=== PATIENT | male | born 1945 | race Caucasian/White ===

== ENCOUNTER → 2016-12-01 | Day surgery (SDC) | payer OTHER ==
[2016-11-16 11:34] VITALS: Ht 185.4 cm; Wt 100.0 kg
[~2016-12-01] VITALS: Ht 185.4 cm; Wt 100.0 kg
[~2016-12-01] MED LIST: 500ML BSS 0.3ML EPI 1:1000PF IRRIG ONE; ACETAMINOPHEN 325 MG TAB PO PRN; AMLO-114 PO; AMVISC PLUS 0.8ML SYRINGE INT OCU ONE; ATEN25TA PO; ATROPINE SULFATE 0.1 MG/ML 5ML SYR IV PRN; BENZ100C84 PO; BSS FLUSH ONE; CEFD1CAP14 PO; DUTA0.5C PO; ENDOCOAT 0.85ML SYRINGE INT OCU ONE; EpHEDrine SULFATE INJ 50 MG/ML AMP IV PRN; EpINEphrine INJ 1MG/ML AMP 1 MG/ML AMP ONE; FENTANYL CITRATE INJ 50 MCG/1 ML 2 ML VIAL ONE; LACTATED RINGER'S 1000ML 500 ML IV SCH; LIDOCAINE 4% OP SOLN DROP CHARGE ONE; LIDOCAINE 4% OP SOLN DROP CHARGE OPL SCH; LIDOCAINE HCL 1% MPF 2 ML VIAL ONE; MIDAZOLAM HCL 1 MG/ML 2ML VIAL ONE; MIX: 4ML BSS 1ML EPI 1:1000 PF TOP ONE; MOXIFLOXACIN OPH SOLN PER DROP CHARGE ONE; PANT40TA PO; POVIDONE-IODINE OP SOLN 30 ML BTL ONE; PRED10TA PO; PROPARACAINE 0.5% OP SOLN PER DROP CHARGE OPL SCH; PRVC40 PO; TOBRAMYCIN/DEXAMETHASONE OPH OINT PER APPLN CHARGE ONE; TRAM-10 PO
[2016-12-01] MEDS: PHENYLEPHRINE HCL 2.5% OP SOLN PER DROP CHARGE OPL SCH ×3 (06:11→08:01)
[2016-12-01] MEDS: TROPICAMIDE 1% OP SOLN PER DROP CHARGE OPL SCH ×2 (07:55→08:02)
[2016-12-01] MEDS: CYCLOPENTOLATE HCL 1% OP SOLN PER DROP CHARGE OPL SCH ×3 (07:57→08:17)
[2016-12-01] MEDS: MOXIFLOXACIN OPH SOLN PER DROP CHARGE OPL SCH ×3 (08:00→08:18)
--- NOTE | 2016-12-01 08:12 | History & Physical Bridge - [place] ---
H&P Re-Evaluation Bridge Note: I have examined the patient, reviewed the History & Physical and in the interval since the performance of the History & Physical I have noted the following changes of clinical significance: No changes noted. Left eye cataract surgery.
--- NOTE | 2016-12-01 09:17 | Anesthesia Progress Nt - [facility] ---
Anesthesia Post Op Note Date & Time December 01, 2016 at 09:16 Vital Signs Pain Intensity: 0 Vital Signs Past 12 Hours Date Time Temp Pulse Resp B/P Pulse Ox O2 Delivery O2 Flow Rate FiO2 12/01/16 07:31 36.3 60 16 184/94 96 Room Air Notes Mental Status: alert / awake / arousable, participated in evaluation Pt Amnestic to Procedure: Yes Nausea / Vomiting: adequately controlled Pain: adequately controlled Airway Patency, RR, SpO2: stable & adequate BP & HR: stable & adequate Hydration State: stable & adequate Anesthetic Complications: no major complications apparent
--- NOTE | 2016-12-01 09:20 | [facility] Post Operative Brief Note ---
Immediate Operative Summary Operative Date December 01, 2016. Pre-Operative Diagnosis Cataract Left Eye Post-Operative Diagnosis Same Procedure(s) Performed Left Cataract Phacoemulsification With Intraocular Lens Implant Surgeon Dr. Wilson Manufacturing Engineering Intern Surgeon(s) None Estimated Blood Loss 0 Findings left cataract Specimens 0 Complication(s) None Disposition
--- NOTE | 2016-12-01 09:21 | [facility] Operative Report ---
Operative Report Date of Service December 01, 2016. Operative Report Phaco with monofocal IOL DATE OF OPERATION: 12/01/16 PREOPERATIVE DIAGNOSIS: Senile nuclear cataract, left eye POSTOPERATIVE DIAGNOSIS: Senile nuclear cataract, left eye PROCEDURE PERFORMED: Phacoemulsification with intraocular lens implantation, left eye SURGEON: Dr. Awais Wilson ANESTHESIA: Topical with 1% intracameral lidocaine and monitored anesthesia care COMPLICATIONS: None DESCRIPTION OF PROCEDURE: After positively identifying the patient both verbally and by wristband in the preoperative area, the left eye was marked as the operative eye. The patient was then brought back to the operating room by the anesthesia and nursing staff where they were given a drop of Lidocaine and betadine into the operative eye. They were then sterilely prepped and draped in the standard fashion typical for ophthalmic surgery. Steri-strips were placed along the upper eyelids to keep the lashes back, and a lid speculum was placed into the operative eye. At this point, a documented time out was performed with members of the ophthalmology, nursing, and anesthesia staffs all agreeing upon the correct patient, correct location for surgery, correct procedure, and correct type and power of intraocular lens to be implanted. The microscope was then swung into position. First, a paracentesis wound was made using a sideport blade. Then, in sequence, 1% preservative-free lidocaine followed by Endocoat viscoelastic was injected into the anterior chamber. Next , the main incision was made with a keratome blade in triplanar fashion. A sharp cystotome was introduced into the eye and used to create a tear in the anterior capsule, which was directed into a continuous curvilinear capsulorrhexis using Utrata forceps. Hydrodissection was then performed with BSS on a flat-tip cannula. Next, the phacoemulsification handpiece was introduced into the eye and used to remove the nucleus in a pkpusx-adg-hcuimrw fashion. This was done without complication and then the irrigation-aspiration handpiece was introduced into the eye and used to remove all remaining cortical and epinuclear material. Amvisc was then injected into the anterior chamber as well as into the capsular bag and using the lens injector system, an MX60 19.5 D lens, serial number [id number], and expiration date 05/2019 was injected into the capsular bag and rotated into the correct position. Next, the irrigation- aspiration handpiece was used to remove all remaining Amvisc. BSS was used to hydrate the main wound, and then BSS was injected into the paracentesis site to reach physiologic pressure and then the main wound was checked and found to be watertight. The patient was given drops of Vigamox and Tobradex ointment into the operative eye, and then the surrounding area was cleaned and dried. A clear plastic shield was placed over the eye and the patient was then sat up and taken from the operating room by the anesthesia staff having tolerated the procedure well and suffering no complications. DISPOSITION: The patient was returned to the recovery room in stable condition. I attest to the content of the Intraoperative Record and any orders documented therein. Any exceptions are noted below.
--- NOTE | 2016-12-01 09:22 | Discharge Instructions-SurgCtr ---
Discharge Instructions Date of Service December 01, 2016. Visit Reason for Visit: Cataract Left Eye Discharge Discharge Diagnosis / Problem: left cataract Discharge Goals Goal(s): Decrease discomfort, Improve function Activity Recommendations Activity Limitations: as noted below Anesthesia . Post Anesthesia Instructions: If you have had General Anesthesia or IV Sedation: * Do not drive today. * Resume driving when surgeon permits. * Do not make important decisions or sign legal documents today. * Call surgeon for: 1. Temperature elevations greater than 101 degrees F. 2. Uncontrollable pain. 3. Excessive bleeding. 4. Persistent nausea and vomiting. 5. Medication intolerance (nausea, vomiting or rash). * For nausea and vomiting use only clear liquids such as: tea, soda, bouillon until nausea subsides, then gradually increase diet as tolerated. * If you have any concerns or questions, call your surgeon's office. If physician is unavailable and it is an emergency, call 911 or go to the nearest emergency room. . Instructions / Follow-Up Instructions / Follow-Up ACTIVITY RECOMMENDATIONS: * Light activities. * You may walk outside, read, watch television. * You may notice redness on the white part of the eye and some blurry vision - this is normal. MEDICATIONS: Resume previous medications unless instructed otherwise by your surgeon. Start all eye drops at 11:30 am today: * Eye drops (today): Prednisone - one drop in operative eye every 2 hours while awake Ofloxacin - one drop in operative eye every 2 hours while awake Ketorolac - one drop in operative eye 4 times daily SPECIAL CARE INSTRUCTIONS: * Tape plastic shield over eye to sleep at night. Call your doctor at with any concerns or problems. FOLLOW UP VISIT: Follow-up with Dr Wilson at [facility] as scheduled. Diet Recommendations Home Diet: no limitations Procedures Procedures Performed: Left Cataract Phacoemulsification With Intraocular Lens Implant Pending Studies Studies pending at discharge: no Medical Emergencies . Who to Call and When: Medical Emergencies: If at any time you feel your situation is an emergency, please call 911 immediately. . Non-Emergent Contact Non-Emergency issues call your: Surgeon . . "Provider Documentation" section prepared by Awais Wilson. .
[2016-12-01 09:24] VITALS: TEMP 36.5
[2016-12-01 09:50] VITALS: BP 152/79; PULSE 56; O2SAT 98
== END | disposition home or self-care (01) ==
LOC: X.SURG 07:15
PROVIDERS: ATTEND Ophthalmology
DX: H25.12 Age-related nuclear cataract, left eye (principal); I10 Essential (primary) hypertension; K21.9 Gastro-esophageal reflux disease without esophagitis; I51.9 Heart disease, unspecified; Z85.51 Personal history of malignant neoplasm of bladder

== ENCOUNTER → 2017-01-05 | Day surgery (SDC) | payer OTHER ==
[2016-12-30 09:47] VITALS: Ht 185.4 cm; Wt 100.0 kg
[~2017-01-05] VITALS: Ht 185.4 cm; Wt 100.0 kg
[~2017-01-05] MED LIST changes: -FENTANYL CITRATE INJ 50 MCG/1 ML 2 ML VIAL ONE; -LIDOCAINE 4% OP SOLN DROP CHARGE OPL SCH; +LIDOCAINE 4% OP SOLN DROP CHARGE OPR SCH; -PRED10TA PO; -PROPARACAINE 0.5% OP SOLN PER DROP CHARGE OPL SCH; +PROPARACAINE 0.5% OP SOLN PER DROP CHARGE OPR SCH
[2017-01-05] MEDS: PHENYLEPHRINE HCL 2.5% OP SOLN PER DROP CHARGE OPR SCH ×3 (09:44→09:54)
[2017-01-05] MEDS: TROPICAMIDE 1% OP SOLN PER DROP CHARGE OPR SCH ×3 (09:45→09:55)
[2017-01-05] MEDS: CYCLOPENTOLATE HCL 1% OP SOLN PER DROP CHARGE OPR SCH ×3 (09:46→09:56)
[2017-01-05] MEDS: MOXIFLOXACIN OPH SOLN PER DROP CHARGE OPR SCH ×3 (09:48→09:57)
--- NOTE | 2017-01-05 10:10 | History & Physical Bridge - [place] ---
H&P Re-Evaluation Bridge Note: I have examined the patient, reviewed the History & Physical and in the interval since the performance of the History & Physical I have noted the following changes of clinical significance: No changes noted. Right eye cataract surgery.
--- NOTE | 2017-01-05 11:18 | [facility] Post Operative Brief Note ---
Immediate Operative Summary Operative Date Jan 05, 2017. Pre-Operative Diagnosis Right Eye Cataract Post-Operative Diagnosis Same Procedure(s) Performed Right Cataract Phacoemulsification With Intraocular Lens Implant Surgeon Dr Wilson Neurodiagnostic Technician Surgeon(s) None Estimated Blood Loss 0ml Findings right cataract Specimens None Complication(s) None Disposition
--- NOTE | 2017-01-05 11:19 | [facility] Operative Report ---
Operative Report Date of Service Jan 05, 2017. Operative Report Phaco with monofocal IOL DATE OF OPERATION: 01/05/17 PREOPERATIVE DIAGNOSIS: Senile nuclear cataract, right eye POSTOPERATIVE DIAGNOSIS: Senile nuclear cataract, right eye PROCEDURE PERFORMED: Phacoemulsification with intraocular lens implantation, right eye SURGEON: Dr. Awais Wilson ANESTHESIA: Topical with 1% intracameral lidocaine and monitored anesthesia care COMPLICATIONS: None DESCRIPTION OF PROCEDURE: After positively identifying the patient both verbally and by wristband in the preoperative area, the right eye was marked as the operative eye. The patient was then brought back to the operating room by the anesthesia and nursing staff where they were given a drop of Lidocaine and betadine into the operative eye. They were then sterilely prepped and draped in the standard fashion typical for ophthalmic surgery. Steri-strips were placed along the upper eyelids to keep the lashes back, and a lid speculum was placed into the operative eye. At this point, a documented time out was performed with members of the ophthalmology, nursing, and anesthesia staffs all agreeing upon the correct patient, correct location for surgery, correct procedure, and correct type and power of intraocular lens to be implanted. The microscope was then swung into position. First, a paracentesis wound was made using a sideport blade. Then, in sequence, 1% preservative-free lidocaine followed by Endocoat viscoelastic was injected into the anterior chamber. Next , the main incision was made with a keratome blade in triplanar fashion. A sharp cystotome was introduced into the eye and used to create a tear in the anterior capsule, which was directed into a continuous curvilinear capsulorrhexis using Utrata forceps. Hydrodissection was then performed with BSS on a flat-tip cannula. Next, the phacoemulsification handpiece was introduced into the eye and used to remove the nucleus in a ojmgds-qdg-orutifz fashion. This was done without complication and then the irrigation-aspiration handpiece was introduced into the eye and used to remove all remaining cortical and epinuclear material. Amvisc was then injected into the anterior chamber as well as into the capsular bag and using the lens injector system, an MX60 19.0 D lens, serial number [id number], and expiration date 09/2019 was injected into the capsular bag and rotated into the correct position. Next, the irrigation- aspiration handpiece was used to remove all remaining Amvisc. BSS was used to hydrate the main wound, and then BSS was injected into the paracentesis site to reach physiologic pressure and then the main wound was checked and found to be watertight. The patient was given drops of Vigamox and Tobradex ointment into the operative eye, and then the surrounding area was cleaned and dried. A clear plastic shield was placed over the eye and the patient was then sat up and taken from the operating room by the anesthesia staff having tolerated the procedure well and suffering no complications. DISPOSITION: The patient was returned to the recovery room in stable condition. I attest to the content of the Intraoperative Record and any orders documented therein. Any exceptions are noted below.
[2017-01-05 11:20] VITALS: TEMP 36.4
--- NOTE | 2017-01-05 11:20 | Discharge Instructions-SurgCtr ---
Discharge Instructions Date of Service Jan 05, 2017. Visit Reason for Visit: Cataract Right Eye Discharge Discharge Diagnosis / Problem: right cataract Discharge Goals Goal(s): Decrease discomfort, Improve function Activity Recommendations Activity Limitations: as noted below Anesthesia . Post Anesthesia Instructions: If you have had General Anesthesia or IV Sedation: * Do not drive today. * Resume driving when surgeon permits. * Do not make important decisions or sign legal documents today. * Call surgeon for: 1. Temperature elevations greater than 101 degrees F. 2. Uncontrollable pain. 3. Excessive bleeding. 4. Persistent nausea and vomiting. 5. Medication intolerance (nausea, vomiting or rash). * For nausea and vomiting use only clear liquids such as: tea, soda, bouillon until nausea subsides, then gradually increase diet as tolerated. * If you have any concerns or questions, call your surgeon's office. If physician is unavailable and it is an emergency, call 911 or go to the nearest emergency room. . Instructions / Follow-Up Instructions / Follow-Up ACTIVITY RECOMMENDATIONS: * Light activities. * You may walk outside, read, watch television. * You may notice redness on the white part of the eye and some blurry vision - this is normal. MEDICATIONS: Resume previous medications unless instructed otherwise by your surgeon. Start all eye drops at 1:30 pm today: * Eye drops (today): Prednisone - one drop in operative eye every 2 hours while awake Ofloxacin - one drop in operative eye every 2 hours while awake Ketorolac - one drop in operative eye 4 times daily SPECIAL CARE INSTRUCTIONS: * Tape plastic shield over eye to sleep at night. Call your doctor at with any concerns or problems. FOLLOW UP VISIT: Follow-up with Dr Wilson at [facility] as scheduled. Diet Recommendations Home Diet: no limitations Procedures Procedures Performed: Right Cataract Phacoemulsification With Intraocular Lens Implant Pending Studies Studies pending at discharge: no Medical Emergencies . Who to Call and When: Medical Emergencies: If at any time you feel your situation is an emergency, please call 911 immediately. . Non-Emergent Contact Non-Emergency issues call your: Surgeon . . "Provider Documentation" section prepared by Awais Wilson. .
--- NOTE | 2017-01-05 11:29 | Anesthesia Progress Nt - [facility] ---
Anesthesia Post Op Note Date & Time Jan 05, 2017 at 11:29 Vital Signs Pain Intensity: 0 Vital Signs Past 12 Hours Date Time Temp Pulse Resp B/P (MAP) Pulse Ox O2 Delivery O2 Flow Rate FiO2 01/05/17 11:20 36.4 62 18 133/86 (102) 100 Room Air 01/05/17 09:31 36.4 56 20 131/81 (98) 98 Room Air Notes Mental Status: alert / awake / arousable, participated in evaluation Pt Amnestic to Procedure: Yes Nausea / Vomiting: adequately controlled Pain: adequately controlled Airway Patency, RR, SpO2: stable & adequate BP & HR: stable & adequate Hydration State: stable & adequate Anesthetic Complications: no major complications apparent
[2017-01-05 11:46] VITALS: BP 133/78; PULSE 58; O2SAT 99
== END | disposition home or self-care (01) ==
LOC: X.SURG 09:01
PROVIDERS: ATTEND Ophthalmology
DX: H25.11 Age-related nuclear cataract, right eye (principal); I10 Essential (primary) hypertension; K21.9 Gastro-esophageal reflux disease without esophagitis; Z87.891 Personal history of nicotine dependence; Z79.899 Other long term (current) drug therapy

== ENCOUNTER 2024-01-19 06:59 | Observation (INO) ==
--- NOTE | 2023-12-23 11:45 | PAT Medication Instructions ---
Medication Instructions Date of Service December 23, 2023 Home Medications Medication Instructions Recorded naloxone 4 mg/actuation nasal 1 sprays intranasal Q2M PRN opioid 05/31/19 spray (Narcan) overdose #2 ea aspirin 81 mg tablet,delayed release (Aspir-) 81 mg PO QAM naproxen sodium 220 mg tablet (Aleve) 220 mg PO BID PRN Pain pantoprazole 40 mg tablet,delayed release 40 mg PO QAM naloxone 4 mg/actuation nasal spray (Narcan) 1 sprays intranasal Q2M PRN opioid overdose amlodipine 10 mg tablet 10 mg PO QAM dccaizr-rltoucvfpxvlk-ltrklmrg 250 mg-250 mg-65 mg tablet (Excedrin Extra Strength) 1 tab PO Q6H PRN Migraine Headache atorvastatin 40 mg tablet 40 mg PO QAM fluorouracil 5 % topical cream 1 applic topical DIRECTED PRN Rash loratadine 10 mg tablet 10 mg PO DAILY PRN Allergy Symptoms nitroglycerin 0.3 mg sublingual tablet 0.3 mg sublingual Q5M PRN Chest Pain tramadol 50 mg tablet 50 mg PO Q6H Continue as directed naloxone 4 mg/actuation nasal spray (Narcan) 1 sprays intranasal Q2M PRN opioid overdose (if needed) nitroglycerin 0.3 mg sublingual tablet 0.3 mg sublingual Q5M PRN Chest Pain (if needed) ASK your surgeon for instructions naproxen sodium 220 mg tablet (Aleve) 220 mg PO BID PRN Pain xxzifqo-cszuucpzkekvg-yqydifgk 250 mg-250 mg-65 mg tablet (Excedrin Extra Strength) 1 tab PO Q6H PRN Migraine Headache STOP taking 24 hours before surgery fluorouracil 5 % topical cream 1 applic topical DIRECTED PRN Rash DO NOT take the morning of surgery loratadine 10 mg tablet 10 mg PO DAILY PRN Allergy Symptoms Take morning of surgery With a small sip of water, OTHERWISE NOTHING TO EAT OR DRINK AFTER MIDNIGHT: aspirin 81 mg tablet,delayed release (Aspir-) 81 mg PO QAM (unless surgeon directed otherwise) pantoprazole 40 mg tablet,delayed release 40 mg PO QAM amlodipine 10 mg tablet 10 mg PO QAM atorvastatin 40 mg tablet 40 mg PO QAM tramadol 50 mg tablet 50 mg PO Q6H Take evening before surgery loratadine 10 mg tablet 10 mg PO DAILY PRN Allergy Symptoms (if needed) tramadol 50 mg tablet 50 mg PO Q6H Other Notes If you have any questions please call us at [phone] or [phone] or [phone] or [phone]
--- NOTE | 2023-12-26 10:24 | Anesthesiology Consultation ---
Date of Service December 26, 2023 Assessment & Plan (1) Encounter for pre-operative examination: Chart Review Chart Review: Acceptable Risk for Surgery and Patient seen in Pre Admission Testing - Discussed cardiac history with Dr. Gao- patient can proceed as scheduled - Check BSG AM DOS - Patient is NOT an ideal OPJ candidate (currently 23 hour obs) Per PAT appt on 12/26/23, had sore throat last week- resolved. No recent illness/disease exposures or recent illness/disease positive tests. Will leave to surgeon's discretion if preop Covid testing needed Patient last seen by cardiology 10/27/2023 = seen for cardiology follow-up. History of [id number] had cardiac cath but had occluded LAD and high-grade distal left circumflex stenosis. Had PCI of his LAD at that time. Longstanding RBBB. States he needs shoulder replacements... reports bilateral carpal tunnel and trigger fingers. Scheduled with [facility] in November. Chronic CAD/RBBBstable from cardiac standpoint. Continue current medications. Hypertension. Dyslipidemia. Fatiguenegative cardiac workup. No signs of anemia, infection or thyroid abnormalities. Likely due to waking up at night to use the restroom. Not taking Vesicare as prescribed. Did encourage patient to take Vesicare. Hx of atypical chest pain- has MSK complaints. Follow up in 6 months. History Surgery Operation Date: 01/19/24 11:55 Proposed Procedures p Right Reverse Total Shoulder Arthroplasty, Possible Biceps Tenodesis - Anshu Hayden MD s Right Open Carpal Tunnel Release - Anshu Hayden MD Height/Weight Height: 6 ft 1 in Weight: 100.2 kg Allergies Allergy/AdvReac Type Severity Reaction Status Date / Time tamsulosin Allergy Unknown "PASSED Verified 12/23/23 08:06 OUT" Medications Home Medications Medication Instructions Recorded Confirmed Last Taken aspirin 81 mg tablet,delayed 81 mg PO QAM 05/28/19 12/23/23 05/07/19 release (Aspir-) naproxen sodium 220 mg tablet 220 mg PO BID PRN Pain 05/28/19 12/23/23 05/29/19 (Aleve) pantoprazole 40 mg tablet,delayed 40 mg PO QAM 05/28/19 12/23/23 05/31/19 06:50 release naloxone 4 mg/actuation nasal 1 sprays intranasal Q2M PRN opioid 05/31/19 12/23/23 Unknown spray (Narcan) overdose #2 ea amlodipine 10 mg tablet 10 mg PO QAM 11/10/23 12/23/23 Unknown qjzfbkl-haawfrmitwugu-bnrlcxzc 250 1 tab PO Q6H PRN Migraine Headache 11/10/23 12/23/23 Unknown mg-250 mg-65 mg tablet (Excedrin Extra Strength) atorvastatin 40 mg tablet 40 mg PO QAM 11/10/23 12/23/23 Unknown fluorouracil 5 % topical cream 1 applic topical DIRECTED PRN 11/10/23 12/23/23 Unknown Rash loratadine 10 mg tablet 10 mg PO DAILY PRN Allergy Symptoms 11/10/23 12/23/23 Unknown nitroglycerin 0.3 mg sublingual 0.3 mg sublingual Q5M PRN Chest 11/10/23 12/23/23 Unknown tablet Pain tramadol 50 mg tablet 50 mg PO Q6H 11/10/23 12/23/23 Unknown Past Medical History Medical History (Updated 12/27/23 @ 14:00 by Rosario Sullivan PA-C) CAD (coronary artery disease) PCI with BRENDA x 3 to LAD 03/04/2009 (occluded LAD) BRENDA to LCx 03/06/2009 (high grade distal LCx stenosis) Chronic back pain Degenerative disc disease Diverticular disease GERD (gastroesophageal reflux disease) well controlled and stable History of bladder cancer 1992- s/p tumor removal - no chemo or XRT- no current issues History of COVID-2019 - no residual issues History of kidney stones Hx of migraine headaches Hx of sepsis 2018 > unknown cause Hyperlipidemia Hypertension Osteoarthritis Type II diabetes mellitus Exercise / Class Metabolic Activity II 4-5 Yardwork/Stairs/Walk up hill (one flight of stairs - no chest pain or SOB ) Past Family History Family History Father Family history of diabetes mellitus Mother Family history of diabetes mellitus Sister Family history of diabetes mellitus Past Surgical History Surgical History H/O arthroscopic knee surgery right History of adenoidectomy History of ankle surgery right trauma to ankle/reconstruction History of biopsy of bladder cancer 1992 > resolved History of cardiac cath February 2009 @ [facility] History of cataract surgery bilateral History of colonoscopy History of cystoscopy History of esophagogastroduodenoscopy (EGD) History of heart artery stent x4 stents (February 2009)--unsure of type History of prostatectomy 2020 - patient unsure why prostate was removed History of repair of rotator cuff bilat History of tonsillectomy Hx of Achilles tendon repair left Past Anesthesia History No Hx of Anesthesia Complications and No Family Hx of Anesthesia Complications History of PONV No Hx of PONV and No Hx of Motion Sickness Social History Smoking Status: Former smoker tobacco type: cigarettes Do You Dip or Chew Tobacco: No Smoking End Date: 30 yrs ago Hx Alcohol Use: No Hx Substance Use: No substance use type: does not use Review of Systems Patient denies chest pain, shortness of breath, dyspnea on exertion, cough, wheezing, palpitations. No hx of seizures, stroke, [place], apnea/snoring. No hx of blood clots or blood transfusions Physical Exam Vital Signs VITALS BP 144/79 P 70 TEMP 97.5 SP02 97% RESP 16 Constitutional no acute distress ENMT Mouth: no TMJ clicking Thyromental Distance: < 3.5 Finger Breadths (3.0) Mallampati Class: III Full dentures on top and bottom Neck + limited neck extension Respiratory normal respiratory effort; no respiratory distress Auscultation: lungs clear to auscultation bilaterally; no wheezes Cardiovascular Rate/Rhythm: regular rate and regular rhythm Heart Sounds: no murmur Vessels: no carotid bruit Musculoskeletal Spine: + pain with cervical ROM (stiffness) Extremities: extremities normal to inspection Psychiatric Orientation: alert Lab Results Anesthesia Preop Results Results Anesthesia Widget: WBC 6.50 K/ul (4.8-10.8) 12/26/23 Hgb 13.6 g/dl (14.0-18.0) L 12/26/23 Hct 39.6 % (42.0-52.0) L 12/26/23 Plt 228 K/uL (130-400) 12/26/23 Na 137 mmol/L (136-145) 12/26/23 K 3.8 mmol/L (3.5-5.1) 12/26/23 Cl 103 mmol/L (98-107) 12/26/23 CO2 28 mmol/L (21-32) 12/26/23 BUN 18 mg/dl (6-23) 12/26/23 Creat 0.91 mg/dl (0.6-1.4) 12/26/23 Glucose Level 188 mg/dl (70-99(Fasting)) H 12/26/23 PT 11.0 Seconds (9.0-12.0) 12/26/23 PTT 28 Seconds (21-31) 12/26/23 INR 1.0 (0.9-1.1) 12/26/23 HA1c 7.8 % (4.5-5.6) H 12/26/23 Blood Type A Positive 12/26/23 Antibody Screen NEGATIVE 12/26/23 Testing Electrocardiogram Date: 12/26/23 Findings: + NSR @ (70bpm) Left axis deviation RBBB When compared to EKG from May 29, 2019- no significant change was found per cardio Chest X-Ray Date: 12/26/23 FINDINGS: Cardiac size is upper limits of normal. Lungs appear clear. Hyperinflation. Coronary arterial stenting. No pneumothorax or pleural effusion. Bones appear intact. IMPRESSION: No acute process. Echocardiogram Date: 08/25/23 EF: 62% LV Function: normal Other Findings: + LVH (mild/concentric) and + diastolic dysfunction (Grade I ) Non dilated cardiac chambers Mild AR. Mild MR. Stress Test Date: 10/17/19 Type: nuclear Abnormal pharmacologic Cardiolite stress test demonstrating inferior infarct with mild evette-infarct ischemia Normal pharmacologic stress EKG Normal post-rest EF Mild inferior wall hypokinesis (Per cardio records- stress test reviewed- feels this is consistent with known high grade distal LCx stenosis- will manage medically)
[~2024-01-19 06:59] MED LIST changes: -500ML BSS 0.3ML EPI 1:1000PF IRRIG ONE; -ACETAMINOPHEN 325 MG TAB PO PRN; -AMLO-114 PO; -AMVISC PLUS 0.8ML SYRINGE INT OCU ONE; -ATEN25TA PO; -ATROPINE SULFATE 0.1 MG/ML 5ML SYR IV PRN; -BENZ100C84 PO; -BSS FLUSH ONE; +BUPIVACAINE 0.5 % 5 MG/1 ML PF 10ML VIAL ONE; -CEFD1CAP14 PO; -DUTA0.5C PO; -ENDOCOAT 0.85ML SYRINGE INT OCU ONE; -EpHEDrine SULFATE INJ 50 MG/ML AMP IV PRN; -EpINEphrine INJ 1MG/ML AMP 1 MG/ML AMP ONE; -LACTATED RINGER'S 1000ML 500 ML IV SCH; -LIDOCAINE 4% OP SOLN DROP CHARGE ONE; -LIDOCAINE 4% OP SOLN DROP CHARGE OPR SCH; -LIDOCAINE HCL 1% MPF 2 ML VIAL ONE; -MIDAZOLAM HCL 1 MG/ML 2ML VIAL ONE; -MIX: 4ML BSS 1ML EPI 1:1000 PF TOP ONE; -MOXIFLOXACIN OPH SOLN PER DROP CHARGE ONE; -PANT40TA PO; -POVIDONE-IODINE OP SOLN 30 ML BTL ONE; -PROPARACAINE 0.5% OP SOLN PER DROP CHARGE OPR SCH; -PRVC40 PO; -TOBRAMYCIN/DEXAMETHASONE OPH OINT PER APPLN CHARGE ONE; -TRAM-10 PO
[2024-01-19] MEDS: LR 60ML/HR IV SCH (07:52)
[2024-01-19] MEDS: ACETAMINOPHEN 500 MG TAB PO SCH (07:52)
[2024-01-19] MEDS: LR 15ML/HR IV SCH (07:56)
[2024-01-19] MEDS ORDERED: ONDANSETRON INJ 2 MG/ML 2 ML VIAL IV PRN ×2 (07:59→12:40)
[2024-01-19] MEDS ORDERED: fentaNYL citrate PF 100 MCG/2 ML VIAL IV PRN (07:59)
[2024-01-19] MEDS ORDERED: ePHEDrine sulfate 50 MG/ML AMP IV PRN (07:59)
[2024-01-19] MEDS ORDERED: ATROPINE SULFATE 0.1 MG/ML 10ML SYR IV PRN (07:59)
[2024-01-19] MEDS ORDERED: fentaNYL citrate PF 100 MCG/2 ML VIAL ONE (08:02)
--- NOTE | 2024-01-19 08:25 | History & Physical Report ---
Date of Service January 19, 2024 Assessment & Plan (1) Right rotator cuff tear arthropathy: (2) Right carpal tunnel syndrome: Plan The diagnosis, treatment alternatives and plan for DALA reviewed in detail. Informed consent was reviewed and confirmed this morning from our November 09, 2023 v isit. No changes to the plan nor his health history. We will proceed as scheduled for right reverse shoulder arthroplasty and right carpal tunnel open release. He was recommended for overnight stay by the preanesthetic testing pathway. History of Present Illness Chief Complaint: Right shoulder pain and right hand pain Primary Care Provider: Darian Mcnulty PA-C 78-year-old male known to me from a previous right shoulder arthroscopic rotator cuff repair presented more recently with ongoing pain. He did have an injury that resulted in recurrent shoulder pain and dysfunction. He presents today with the intention to proceed with right shoulder reverse arthroplasty for rotator cuff arthropathy, which we discussed in detail on November 09, 2023. In the interim he will call and asked to be surgically treated for carpal tunnel syndrome. Has had a longstanding history of hand pain and numbness with supportive electrodiagnostic studies and physical exam for the diagnosis of carpal tunnel syndrome. No changes to his health history. Allergies Allergy/AdvReac Type Severity Reaction Status Date / Time tamsulosin Allergy Intermediate "PASSED Verified 01/19/24 07:38 OUT" Home Medications Medication Instructions Recorded Confirmed Type aspirin 81 mg tablet,delayed 81 mg PO QAM 05/28/19 01/19/24 History release (Aspir-) naproxen sodium 220 mg tablet 220 mg PO BID PRN Pain 05/28/19 01/19/24 History (Aleve) pantoprazole 40 mg tablet,delayed 40 mg PO QAM 05/28/19 01/19/24 History release naloxone 4 mg/actuation nasal 1 sprays intranasal Q2M PRN opioid 05/31/19 01/19/24 Rx spray (Narcan) overdose #2 ea amlodipine 10 mg tablet 10 mg PO QAM 11/10/23 01/19/24 History dsffmug-wbmehanuulshx-eqqxzckq 250 1 tab PO Q6H PRN Migraine Headache 11/10/23 01/19/24 History mg-250 mg-65 mg tablet (Excedrin Extra Strength) atorvastatin 40 mg tablet 80 mg PO QAM 11/10/23 01/19/24 History fluorouracil 5 % topical cream 1 applic topical DIRECTED PRN 11/10/23 01/19/24 History Rash loratadine 10 mg tablet (Claritin) 10 mg PO DAILY PRN Allergy Symptoms 11/10/23 01/19/24 History nitroglycerin 0.3 mg sublingual 0.3 mg sublingual Q5M PRN Chest 11/10/23 01/19/24 History tablet Pain tramadol 50 mg tablet 50 mg PO Q6H 11/10/23 01/19/24 History Past Med/Surg History Problem List (Updated 01/19/24 @ 08:30 by Anshu Hayden MD) Right carpal tunnel syndrome Complete tear of right rotator cuff Right rotator cuff tear arthropathy De Quervain's tenosynovitis, left Encounter for pre-operative examination Biceps tendinopathy H/O shoulder surgery left shoulder Hypertension Medical History Type II diabetes mellitus History of bladder cancer 1992- s/p tumor removal - no chemo or XRT- no current issues CAD (coronary artery disease) PCI with BRENDA x 3 to LAD 03/04/2009 (occluded LAD) BRENDA to LCx 03/06/2009 (high grade distal LCx stenosis) Hx of migraine headaches History of COVID-19 2019 - no residual issues Hypertension Hx of sepsis 2018 > unknown cause History of kidney stones Osteoarthritis Degenerative disc disease Chronic back pain Diverticular disease GERD (gastroesophageal reflux disease) well controlled and stable Hyperlipidemia Surgical History History of prostatectomy 2019 - patient unsure why prostate was removed History of repair of rotator cuff bilat H/O arthroscopic knee surgery right Hx of Achilles tendon repair left History of biopsy of bladder cancer 1992 > resolved History of cystoscopy History of colonoscopy History of esophagogastroduodenoscopy (EGD) History of cataract surgery bilateral History of adenoidectomy History of tonsillectomy History of heart artery stent x4 stents (February 2009)--unsure of type History of cardiac cath February 2009 @ [facility] History of ankle surgery right trauma to ankle/reconstruction Family History Father Family history of diabetes mellitus Mother Family history of diabetes mellitus Sister Family history of diabetes mellitus Social History Smoking Status: Former smoker Smoking End Date: 30 yrs ago; Second Hand Exposure: No; Do You Dip or Chew Tobacco: No; Tobacco Cessation Education Requested by Patient: No Hx Alcohol Use: No Hx Substance Use: No Preferred Language: Faroese Communication Ability: Effective Site Reliability Engineer Required: No Beliefs That Will Affect Care: None Current Living Situation: Spouse Other Information That Helps Us Care for You: No Feels Safe at Home: Yes Safety Concerns: Feels Safe At This Time Assistive Devices: Denture - Upper, Denture - Lower, Glasses and Hearing Aid - Bilateral Review of Systems All systems reviewed & are unremarkable except as noted in HPI & below. Physical Exam Right shoulder: No overlying skin lesions. Exam unchanged. Can touch the top of his head and internally rotate to his back pocket. Right hand: No significant atrophy. Intact light touch sensation throughout. Positive carpal tunnel compression test this morning. Negative Tinel's. Constitutional well developed and well nourished; no acute distress and not intoxicated appearing ENMT external ear and nose normal, oropharynx normal Respiratory normal respiratory effort; no respiratory distress Cardiovascular Extremities: normal capillary refill; no edema Skin no rashes, warm and dry Psychiatric A+Ox3, euthymic affect Results & Data Results & Data Laboratory Results . Diagnostic Findings . PG Care Time/CCT Total # of Minutes Spent Total Time Spent with Patient: Total time spent is greater than 50% in coordination of care (as documented) at patient's floor/unit and/or counseling patient: Coding Level of Care Code None Diagnoses Right rotator cuff tear arthropathy M75.101; M12.811 Right carpal tunnel syndrome G56.01
[2024-01-19] MEDS ORDERED: PROPOFOL IV EMULSION 10 MG/ML 20 ML VIAL IV ONE (08:44)
[2024-01-19] MEDS ORDERED: ROCURONIUM BROMIDE 10 MG/ML 5 ML VIAL IV ONE (08:44)
[2024-01-19] MEDS ORDERED: ONDANSETRON INJ 2 MG/ML 2 ML VIAL ONE (08:44)
[2024-01-19] MEDS ORDERED: DEXAMETHASONE SOD INJ 4 MG/ML VIAL ONE (08:44)
[2024-01-19] MEDS: ceFAZolin 2000MG 2,000 MG/15 ML SYR IV SCH ×2 (09:07→18:39)
[2024-01-19] MEDS ORDERED: ePHEDrine sulfate 50 MG/5 ML SYR ONE (09:34)
[2024-01-19] MEDS ORDERED: TRANEXAMIC ACID / 0.7% NACL 1000MG/100ML BAG IV ONE (09:45)
[2024-01-19] MEDS: TRANEXAMIC ACID 100 MG/ML 10 ML VIAL IV ONE (10:16)
[2024-01-19] MEDS ORDERED: PHENYLEPHRINE 100MCG/ML 10ML SYR IV ONE (10:33)
[2024-01-19] MEDS: BUPIVACAINE 0.5 % 5 MG/1 ML MPF 30ML VIAL ONE (10:47)
[2024-01-19] MEDS: LIDOCAINE 1% LOCAL 20 ML VIAL ONE (10:47)
[2024-01-19] MEDS ORDERED: NEOSTIGMINE METHYLSULFATE 1 MG/ML 10ML VIAL ONE (12:00)
[2024-01-19] MEDS ORDERED: GLYCOPYRROLATE 0.2 MG/ML VIAL ONE ×2 (12:00)
[2024-01-19] MEDS: VANCOMYCIN HCL 1000MG/20ML VIAL ONE (12:03)
[2024-01-19] MEDS ORDERED: PHENYLEPHRINE HCL 10 MG/ML VIAL ONE (12:08)
[2024-01-19] MEDS ORDERED: bisacodyL 10 MG SUPP PR PRN (12:40)
[2024-01-19] MEDS ORDERED: NALOXONE HCL 0.4 MG/1 ML VIAL/CARP IV PRN (12:40)
[2024-01-19] MEDS ORDERED: MAGNESIUM HYDROXIDE SUSP 30 ML UDC PO PRN (12:40)
[2024-01-19] MEDS ORDERED: METOCLOPRAMIDE HCL INJ 5 MG/ML 2 ML VIAL IV PRN (12:40)
[2024-01-19] MEDS ORDERED: diphenhydrAMINE Capsule 25 MG CAP PO PRN (12:40)
--- NOTE | 2024-01-19 12:59 | Operative Report ---
PG Post Operative Report Pre & Post Diagnosis Operation Date: 01/19/24 08:45 Pre-Op Diagnosis: Right Carpal Tunnel Syndrome, Right Rotator Cuff Tear Arthopathy Post-Op Diagnosis: Right Carpal Tunnel Syndrome, Right Rotator Cuff Tear Arthopathy I identified the patient and participated in the time-out.: Yes Procedure Operation Date: 01/19/24 08:45 Actual Procedures p Right Reverse Total Shoulder Arthroplasty, revision open biceps Tenodesis(Right) - Anshu Hayden MD s Right Open Carpal Tunnel Release(Right) - Anshu Hayden MD Surgeon Anshu Hayden MD Hand Tufter Ruth Sutton PA-C Estimated Blood Loss 100 Findings See Below Arthrex Univers Reverse Shoulder Arthroplasty was performed: Stemsize 10, 36 mm neutral suture cup, 36+3 humeral insert, 24 mm 20 degree full oblique augment +2 lateralized baseplate, 20 mm modular post, 36/24 modular glenoid system glenosphere, universal peripheral nonlocking screw 4.5 mm x 40 and 32 mm, universe peripheral locking screw 4.5 x 20 and 24 mm EXAMINATION UNDER ANESTHESIA: Preoperative exam under anesthesia revealed the followin degrees of forward flexion, 60 degrees external rotation at the side, 120 degrees of abduction, 60 degrees of external rotation and 25 degrees of internal rotation with the arm abducted. Postoperatively, range of motion parameters after implantation of prosthesis revealed a stable prosthesis with range of motion parameters as follows: 130 of forward flexion, 60 of external rotation at the side, 120 of abduction, 90 of external rotation with the arm abducted, 20 of internal rotation with the arm abducted. The patient's safe range of motion included the ability to get to the back of the head. Internal rotation to the belly without significant tension. Specimens Humeral head for pathology Drains none Anesthesia Type General Regional Complications none Disposition Accompanied Patient To Recovery: No Disposition: Recovery Room Indications 78-year-old male presented with persistent shoulder pain and rotator cuff dysfunction. He had a history of rotator cuff repair. Advanced imaging demonstrated rotator cuff arthropathy and reverse shoulder arthroplasty to improve pain and function was offered. Reviewed the risk, benefits and alternatives in detail, as outlined the preoperative note. Informed consent was documented in clinic as he wished to proceed. In the interim since the clinic appointment, he elected to seek open carpal tunnel release which was previously offered. This morning reviewed the risk, benefits and alternatives to carpal tunnel release surgery. He was wanting to do that at the same anesthetic event. I was agreeable. Informed consent included the open carpal tunnel release on the right side. Description of Procedure The patient was identified in the preoperative holding area. The operative extremity was marked. Regional block was administered by Anesthesia. The patient was then brought to the operating room and placed supine. Preliminary time-out procedure was performed. All were in agreement. General endotracheal anesthesia was induced without any issues. The patient was sat up in around 40-45 degrees of inclination in the beachchair position. Exam under anesthesia was performed confirming the above findings. Preoperative antibiotics were administered. Sequential compressive devices were placed on her bilateral lower extremities for DVT prophylaxis. Bony prominences were inspected, well-padded and free of any evidence for peripheral nerve compression. Attention was directed first to the carpal tunnel release. Surgical timeout was called, confirming laterality. The area was cleansed with alcohol, and then prepped with chlorhexidine and draped in usual sterile fashion. A nonsterile tourniquet had been placed on the forearm. Surgical timeout was confirmed once again. Incision was made in the usual loca tion for carpal tunnel release along the radial border of the flexed fourth digit, extended from Gong's cardinal line to the wrist flexor crease. Incision was made and dissection was carried out using tenotomy scissors through the palmar fat. Small self-retaining retractor was placed. Superficial palmar fascia was identified and incised longitudinally. The retractor was re- positioned. Fibers of the pollicis brevis were gently and bluntly elevated radially and away from the carpal tunnel ligament. The ligament was identified in its full extent. A Sehn retractor was placed proximally and distally, as needed. The carpal ligament was incised using the tip of the Micro-Skippers blade longitudinally, starting distally moving proximally. Tenotomy scissors were used to complete the release proximally through the distal aspect of the forearm fascia. Tourniquet was left down. There was adequate hemostasis. Gentle irrigation was used. The wound was then closed with a simple suture, co nsisting of 3-0 nylon. Wound was dressed with sterile Xeroform, sterile gauze and an occlusive dressing with Ioban until the final dressing can be applied following the arthroplasty procedure. Attention was then directed to the shoulder. The entire operative upper extremity was then prepped and draped in a normal sterile fashion, with use of padded Woody. Prior to incision, a second time-out procedure was performed confirming the patient, site, laterality and the procedure. All were in agreement. 1. Right shoulder open reverse total shoulder replacement with augmented glenoid baseplate with patient specific guide: A deltopectoral incision was utilized. Incision was carried out sharply and with electrocautery through the skin and subcutaneous tissues. The deltopectoral interval was developed. The cephalic vein was taken laterally. Subdeltoid space was developed bluntly. A deltoid brown retractor was placed to retract the deltoid laterally and superiorly. 1 cm of the superior border of the pectoralis major tendon insertion site was released in standard fashion to improve exposure. Clavipectoral fascia was removed with electrocautery. Extensive subacromial bursitis was encountered and this was completely removed with a Bovie. The lateral aspect of the conjoined tendon was then followed to its insertion site on the coracoid. The conjoined tendon was retracted me dially. The biceps tendon was identified, enlarged consistent with tendinopathy. It was released from the arthroscopic tenodesis site, using a Bovie and followed up into the rotator interval. A tenodesis was performed to the pectoralis major tendon as will be discussed in further detail below. A sharp Hohmann retractor was then placed into the interval and into the joint. Subscapularis tendon was still present and attached on the lesser tuberosity. The articular surface of the humeral head could be appreciated. The capsule with the subscapularis tendon was then released up the inferior humeral neck as one layer. The humeral head dislocated with successive extension and external rotation. Visualization of the humeral head revealed significant osteoarthritis and wear. The supraspinatus was repaired but thinning. Rotator cuff suture was debrided using a rongeur. Several of the anchor sites were firmly attached. All extraneous rotator cuff repair suture was debrided. The top of the humeral head was identified. A starting pin was used sound the humeral canal. The bone quality was moderate. Opening reamers were used to define the canal. The 6 mm reamer allowed alignment with the canal. The cutting guide was then placed on the reamer handle in the usual fashion. Humeral head appeared to be in 35-40 degrees of retroversion. The cutting guide was fixed with a breakaway pins. Sagittal saw was then used to create the humeral head cut. Blunt Hohmann was used posteriorly to ensure safety with a saw. Successive trial broaches were then broached up to a size 10, which gave us excellent press-fit. The trial stem was left in place. Humeral head covering was then placed. We then proceeded over to glenoid. An anterior glenoid neck retractor was placed. The MGHL and SGHL were released off of the muscular portion of the subscapularis being mindful of palpating and identifying the axillary nerve to make sure it was free of injury during releases. Next, the interval between the IGHL and the muscular portions of the subscapularis was identified. My finger was on the axillary nerve to protect it during releases. The IGHL was then released up to around the 7 o'clock position. A blunt retractor was then placed to retract the humerus posteriorly. A sharp Hohmann retractor was placed at the 12 o'clock position. The glenoid deformity was evaluated. Extraneous capsulolabral tissue was dissected to reveal the bone anatomy. This confirmed our decision to proceed with preoperative virtual planning. The arm was placed around 30 degrees of flexion, 90 degrees of external rotation and 30 degrees of abduction to distract the humerus posteriorly. Labrum was circumferentially removed including the biceps tendon stump with a Bovie. Arthrex virtual implant positioning guide set to the preplanned parameters was used to place an initial guide pin. The augment template was then placed. It seemed that we are in the appropriate position with our central pin and the augment would fit well. The patient specific guide was then removed. The full augment oblique reamer was then used over the pin after drilling the starting position. The depth was judged based on the preoperative plan. Once cartilage debrided from the subchondral bone the preparation was evaluated. We then read to the matching the preoperative plan. Copious irrigation was performed to irrigate out the joint. The planned glenoid baseplate and central post was then placed. The implant was firmly tamped down with good capture of the central post. We then drilled the 2 compression screw positions and the trajectory that was planned on the VIP program. This was the superior and inferior positions. There was excellent purchase. The 2 locking position was anterior and posterior on the glenoid baseplate were then drilled, measured and placed with firm purchase according to the virtual plan. The final construct appeared to be extremely strong as the entire glenoid and scapula moved together as one unit confirming excellent fixation of the baseplate. Next, the planned glenosphere was confirmed, opened, and set for offset on the back table. The glenosphere was then seated into the baseplate and impacted onto the duran taper. A baker was used to test fixation, before resetting with additional malleting. The central fixation screw was then placed. The joint was then copiously irrigated. Humerus was then brought back into view with external rotation, deltoid brown retractor and multiple blunt Homans. The cup reamer was used over the post. This area was irrigated. A trial tray was then placed that would best accommodate the anatomy. The humerus was then reduced onto the glenoid with the arm in abduction and external rotation. The arm was taken out of the jaime, taken through a physiologic range of motion. No evidence for impingement. No evidence for kick off. No shuck. Thus, the trials would be a most appropriate for stability. Next, the trial humeral component was removed. The final stem prosthesis was then brought onto the field. Final tray insert as well as the poly components were opened. The final humeral component with the tray were made on the back table, matching the trial implant. Humeral canal was copiously irrigated. The final humeral component was then brought back on to the field and seated firmly into the humerus. Excellent press-fit was achieved. Polyethylene implant was then placed and firmly attached to its mechanism. This completed the humeral component implantation. With the final components in place, humeral component was then reduced onto the glenosphere and final postoperative range of motion assessment was performed. Stability confirmed. This completed the open reverse total shoulder replacement. 2. Open biceps tenodesis: As dictated above, enlargement of the biceps tendon was noted consistent with tendinopathy and had previously been tenodesed at the articular margin arthroscopically. The revision tenodesis was necessary to keep appropriate tension relationship with the long head bicep. The tendon was released from the bicipital sheath using a Bovie and then tenodesed to the pectoralis major tendon using a #2 Ti-Cron suture in [id number]-[id number] fashion. The tendon was then followed up as proximal as could be visualized and then tenotomized. Remaining stump was removed just proximal to the tenodesis site. This completed the open biceps tenodesis. The wound was copiously irrigated. The deltopectoral incision was closed with continuous #1 Vicryl suture. Subcutaneous tissues were closed with 2-0 Vicryl suture in buried interrupted fashion and skin closed with jose alfredo. The wound was dressed with xeroform, gauze, and ABDs, contained by wilfredo. The patient was placed in a standard sling and turned over to the anesthesia team. The patient tolerated procedure well, was extubated in the operating room without complication, and transferred to the PACU in stable condition. DISPOSITION: The patient will remain in sling for a total of 4 weeks. Hand, wrist, and elbow range of motion exercises may be initiated. Formal therapy will be initiated starting with gentle active assisted range of motion. No strengthening will be permitted before 12 weeks. Physician insurance claims assistant attestation: Ruth Sutton PA-C was present and scrubbed for the duration of the case. Skilled assistance was essential to prepping/draping, patient positioning, retraction, and wound closure. I attest to the content of the Intraoperative Record and any orders documented therein. Any exceptions are noted below.
--- NOTE | 2024-01-19 13:25 | XRay Report ---
XR shoulder RT min 2V routine CLINICAL HISTORY: Post shoulder surgery COMPARISON STUDY: None. FINDINGS: Status post reverse right total shoulder arthroplasty. The hardware appears intact. No frac ture or dislocation. Skin jose alfredo are in place. IMPRESSION: Status post reverse right total shoulder arthroplasty. No evidence for hardware complica tion. ACT 112: Negative or not required by law. Electronically signed by: Damaso Simms M.D. 01/19/2024 1:23 PM
--- NOTE | 2024-01-19 13:34 | Anesthesiology Progress Note ---
Date of Service January 19, 2024 Anesthesia Post Procedure Vital Signs Vital Signs: Temp Pulse Pulse Resp BP Pulse Ox O2 Del Method 01/19/24 13:20 67 16 133/71 98 Room Air 01/19/24 13:10 97.5 F L 66 16 134/76 98 Room Air 01/19/24 13:00 63 16 120/71 99 Oxymask 01/19/24 12:50 69 16 126/69 98 Oxymask 01/19/24 12:40 96.8 F L 64 16 115/65 100 Oxymask 01/19/24 07:39 97.7 F 74 18 176/95 H 96 Room Air O2 Flow Rate 01/19/24 13:20 01/19/24 13:10 01/19/24 13:00 4 01/19/24 12:50 4 01/19/24 12:40 6 01/19/24 07:39 Pain Intensity Lower Back: Pain Intensity: 2 Transfer of Care Handoff Completed per policy Notes Mental Status: alert / awake / arousable and participated in evaluation Patient Amnestic to Procedure: Yes Nausea / Vomiting: adequately controlled Pain: adequately controlled Airway Patency, RR, SpO2: stable & adequate BP & HR: stable & adequate Hydration State: stable & adequate Anesthetic Complications: no major complications apparent and Pt Satisfied with anesthetic care
[2024-01-19] MEDS ORDERED: LORATADINE 10 MG TAB PO PRN (14:07)
[2024-01-19] MEDS ORDERED: NALOXONE NASAL SPRAY 4 MG ER HOMEPACK PRN (14:07)
[2024-01-19] MEDS ORDERED: NAPROXEN 250 MG TAB PO PRN (14:07)
[2024-01-19] MEDS ORDERED: NON-FORMULARY MEDICATION (Aspirin-Acetaminophen-Caffeine [Excedrin Extra Strength] 250-250 PO PRN (14:07)
[2024-01-19] MEDS ORDERED: NITROGLYCERIN SL 0.4 MG/TAB TAB SL PRN (14:11)
[2024-01-19] MEDS: SODIUM CHLORIDE 0.9% 1,000 ML IV SCH (14:31)
[2024-01-19] MEDS: traMADol HCL 50 MG TABLET PO SCH (14:48)
[2024-01-19] MEDS ORDERED: PHARMACY GLYCEMIC MGMT CONSULT PRN (16:35)
[2024-01-19] MEDS ORDERED: GLUCOSE 10 TAB/TUBE PO PRN (17:15)
[2024-01-19] MEDS ORDERED: GLUCAGON FOR INJ 1 MG VIAL IM PRN (17:15)
[2024-01-19] MEDS ORDERED: CARBOHYDRATES FOR HYPOGLYCEMIA PO PRN (17:15)
[2024-01-19] MEDS ORDERED: GLUCOSE 40% GEL 15 GM TUBE PO PRN (17:15)
[2024-01-19] MEDS ORDERED: DEXTROSE 50% 50 ML SYRINGE IV PRN (17:15)
[2024-01-19] MEDS: LANTUS PER UNIT CHARGE SC ONE (17:40)
[2024-01-19] MEDS: INSULIN ASPART PER UNIT CHARGE SC SCH (17:40)
--- NOTE | 2024-01-19 17:46 | Anesthesiology Progress Note ---
Date of Service January 19, 2024 Anesthesia Post Procedure Vital Signs Vital Signs: Temp Pulse Pulse Resp BP Pulse Ox O2 Del Method 01/19/24 16:05 36.3 C L 77 16 130/74 92 Room Air 01/19/24 14:52 35.6 C L 77 16 133/69 94 Room Air 01/19/24 14:18 36.4 C L 72 16 128/76 94 Room Air 01/19/24 13:30 36.4 C L 65 16 140/67 98 Room Air 01/19/24 13:20 67 16 133/71 98 Room Air 01/19/24 13:10 36.4 C L 66 16 134/76 98 Room Air 01/19/24 13:00 63 16 120/71 99 Oxymask 01/19/24 12:50 69 16 126/69 98 Oxymask 01/19/24 12:40 36.0 C L 64 16 115/65 100 Oxymask 01/19/24 07:39 36.5 C 74 18 176/95 H 96 Room Air O2 Flow Rate 01/19/24 16:05 01/19/24 14:52 01/19/24 14:18 01/19/24 13:30 01/19/24 13:20 01/19/24 13:10 01/19/24 13:00 4 01/19/24 12:50 4 01/19/24 12:40 6 01/19/24 07:39 Pain Intensity Lower Back: Pain Intensity: 2 Transfer of Care Handoff Completed per policy Notes Mental Status: alert / awake / arousable Patient Amnestic to Procedure: Yes Nausea / Vomiting: adequately controlled Pain: adequately controlled Airway Patency, RR, SpO2: stable & adequate BP & HR: stable & adequate Hydration State: stable & adequate Anesthetic Complications: no major complications apparent and Pt Satisfied with anesthetic care
[2024-01-19] MEDS: DOCUSATE SODIUM 100 MG CAP PO SCH (20:39)
[2024-01-19] MEDS: SENNA 8.6 MG TAB PO SCH (20:39)
--- OUTSIDE RECORDS SUMMARY | 2024-01-19 21:18 | External Medical Summary | Summary of Care ---
Author Name Unknown Organization [facility] Address [address] [facility] [address] Phone [phone] Care Team Providers Care Tape Cutter Name Role Phone Darian Mcnulty PA-C Primary Care Provider [phone] Reason for Visit * Reason Onset Date Comments Forms Request 01/04/2024 Encounter Details Date Type Department Care Team (Late st Contact Info) Description [facility]/04[facility] [address] [phone] Darian Mcnulty PA-C [facility] [address] [address] Forms Request Allergies Active Allergy Reactions Criticality Noted Date Comments Tamsulosin Hcl Hypotension High 11/06/2015 PT passed out documented as of this encounter (statuses as of 01/09/2024) Medications Medication Sig Dispensed Refills Start Date End Date Status Loratadine 10 MG Oral Tablet (Claritin)Indicatio ns:Seasonal allergic rhinitis due to pollen Take by mouth 1 Tablet in the morning. 30 Tablet 5 11/02/2021 Active Excedrin Extra Strength 250-250-65 MG Oral Tablet (Aspirin-Acetaminop hen-Caffeine 250-250-65 mg per tab) Take 2 Tablets by mouth every 6 hours as needed. Active Naproxen Sodium 220 MG Oral Capsule Take 2 Capsules by mouth 2 times a day with morning and evening meals. Active Aspirin 81 MG Oral Tablet Delayed Release (Aspirin Low Dose) Take 1 Tablet by mouth in the morning. Active Fluorouracil 5 % External Cream (Efudex)Indications :Actinic keratosis Apply to scalp, temples nightly x 2 weeks 40 g 1 08/03/2023 Active Nitroglycerin 0.4 MG Sublingual Tablet Sublingual (Nitrostat) Place 1 Tablet under the tongue every 5 minutes as needed for Pain, Chest. as needed 25 Tablet 5 10/27/2023 Active amLODIPine Besylate 10 MG Oral Tablet (Norvasc)Indication s:HTN, goal below 130/80 Take 1 Tablet by mouth in the morning. 90 Tablet 3 10/31/2023 10/30/2024 Active Pantoprazole Sodium 40 MG Oral Tablet Delayed Release (Protonix) Take 1 Tablet by mouth 2 times a day. 180 Tablet 1 11/10/2023 Active traMADol HCl 50 MG Oral Tablet (Ultram)Indications :Low back pain with sciatica, sciatica laterality unspecified, unspecified back pain laterality, unspecified chronicity Take 2 Tablets by mouth every 6 hours as needed for Severe Pain, Not more than 6 tablets per day 180 Tablet 2 12/14/2023 Active Atorvastatin Calcium 40 MG Oral Tablet (Lipitor)Indication s:Dyslipidemia, goal LDL below 70 TAKE ONE TABLET BY MOUTH EVERY DAY 100 Tablet 2 12/21/2023 12/20/2024 Active documented as of this encounter (statuses as of 01/09/2024) Active Problems Problem Noted Date Diagnosed Date 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 08/24/2023 Type 2 diabetes mellitus wit h diabetic polyneuropathy, without long-term current use of insulin 11/02/2021 Hereditary and idiopathic peripheral neuropathy 05/02/2020 Coronary artery disease invo lving [place] coronary artery of [place] heart without angina pectoris 2019 RBBB (right bundle branch block) 08/14/2018 HTN, goal below 130/80 02/17/2018 Migraine without aura 12/10/2016 BPH with obstruction/lower urinary tract symptom s 12/10/2016 Elevated prostate specific antigen (PSA) 017 Other enthesopathy of left foot 12/24/2015 Arthritis of left hip 12/24/2015 Arthritis of knee, left 12/24/2015 GERD (gastroesophageal reflux disease) 6 Other voice and resonance disorders 11/24/2009 Chronic rhinitis 11/24/2009 History of colonic polyps 09/03/2009 Dyslipidemia, goal LDL below 70 06/19/2009 Overview: Per Lipid Taxonomy. - same, LD 162, cknml, urmnhgsx194 Mgh94-lzb cbc, fbs 105, 6.1%, mg 2.2, ferr43, 229/150/37/162, --start zocor 20, fe 325 daily-(has not st yet) : nml cbc, BMP, FBS 111,217/135/38/153-LDL_D, TSH 2.41 S/P angioplasty with stent 03/04/2009 Overview: 07/30/09-- RCA, LM nl, LAD stents patent , L circ 40% prox st, 40% 1st OM, patentstent distal circ -Geovanni, ef 55% 03/06/2009--hematoma softened---laborer general--left circumflex was predilated and stented with [id number] Taxus Liberte stent. 03/04/2009---Dr.Rajesh Edson MD [facility] PCI of the left anterior decending artery Xience V drug-eluting stents 03/04/2009 [facility]--Dr. Rodriguez--Cardiac Catherization--left main cornary artery normal--left anterior was totally occuluded. In its proximal portion.Circumflex-severe disease about 70% diameter stenosis, the vessel beyond this lesion was small. Right cornary artery normal.Recommended percutaneous left anterior descending artery. 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 Li noted mucosa suggestive of Mckeon's esophagus and a pedunculated polyp on the right side of the vallecula. Recall in September 2012. 09/03/2009--pt was taken of nexium 02/16--after card cath-stents by Geovanni --as on plavix-- on ?pepcid now Gff87-99--VFQ-MA.Haight.--sm HH, + Mckeon--bx--cw same.-- On nexium-->5 yrs History of tobacco use 07/26/2007 Overview: 1 ppd x25 yrs, quit 1999 Metabolic syndrome 07/26/2007 MEDICATION USE AGREEMENT 01/21/2006 Overview: EXECUTED 01/21/[address] GIBSON CHRONIC BACKACHE - FAILED SURGERY X 3 12/24/2005 Overview: 07/26/2007:Was eval by , was rec MRI, could not do then, Declines Inj now, refer PT, methadone Not helping, will wean off . : MRI:L3-L4 disc bulging with evidence for superimposed broad-based lateral and far lateral disc protrusion. There is also mild retrolisthesis and mild central canal narrowing at this level. Status post L4-L5 and L5-S1 laminectomies. No evidence for recurrent disc herniation or other pathological process at these levels. Bilateral renal cysts and possible left-sided hydronephrosis, as above, for which sonogram is suggested in follow-up. : xray LS-in epic-abn, Tspine:marginal degenerative arthritic changes , mid and lower dorsal intervertebral disk space levels, nl ua. documented as of this encounter (statuses as of 01/09/2024) Resolved Problems Problem Noted Date Diagnosed Date Resolved Date Gastroesophageal reflux disease 11/15/2022 02/28/2023 Complicated UTI (urinary tract infection) 11/06/2020 02/10/2021 UTI (urinary tract infection) 11/05/2020 11/06/2020 Hyponatremia 11/16/2019 11/23/2019 Neuropathy 10/23/2019 11/02/2021 Type 2 diabetes mellitus wit h hemoglobin A1c goal of less than 7.0% 01/29/2019 10/29/2021 Type 2 diabetes mellitus with nephropathy 09/27/2018 11/10/2020 Vasovagal syncope 06/13/2018 06/13/2018 Dehydration 06/13/2018 06/13/2018 Acute kidney injury (nontraumatic) 06/13/2018 06/13/2018 Syncope 06/12/2018 06/13/2018 Diabetes mellitus without complication 02/17/2018 09/27/2018 Sepsis 12/07/2016 02/06/2020 E. coli UTI 12/07/2016 07/28/2017 Sepsis due to Escherichia coli 11/03/2015 12/21/2016 Navicular fracture, foot 11/03/2015 Complicated UTI (urinary tract infection) 10/28/2015 11/23/2019 HTN, goal below 140/90 07/21/201103/02 Overview: Per HTN Protocol #27. HTN, goal below 140/90 04/19/201102/17 Overview: 04/20No further refills without an appointment Cough 11/25/2009 12/21/2016 Subjective tinnitus 11/25/2009 07/28/19 18 Chronic otitis externa 11/25/200911/15 MASS (PROBABLE POLYP) IN HYPOPHARYNX 11/25/2009 11/15/2018 Impacted cerumen 11/24/2009 12/21/2016 Other specified disorder of the esophagus 09/25/2009 07/28/2017 Overview: --Dr. Toledo--Esophagus biopsy--lower third---mild chronic inflammation--intestinal metaplasia--consistent impression Barretts esophagus--no evidence of Dysplasia. CORONARY ATHEROSCLER. OF MARY ANN MARIELLE CORONARY VESSEL 08/06/2009 05/06/2022 Overview: 07/30/09--rpt erdm-LcFeia-kp86%,nl LM,RCA,;patent LADstent,LCx 40%st prox,OM1 40%,disal`cx stent patent.-- rec egd if sx persist--he had egd .cw barretts. Dyspnea and respiratory abnormality 07/29/2008 07/28/2017 Overview: ICD-10 update of inactive term Other nonspecific abnormal c ardiovascular system function study 07/19/2008 07/28/2017 Overview: Mild rev Perfusion defecet Distal anteroseptal wall, no TID, Ef >70% Rest, 63% post stress..--refer [facility] per pt request. LIVER DISORDERS NEC--sev fatty liver. 07/05/2008 07/28/2017 Overview: US . Screening for prostate cancer 07/26/2007 12/21/2016 Overview: Odt00--8.95 11/24/06 2:05P 11/24/06 3.41 FINAL 01/22/06 10:41A 01/22/06 3.17 FINAL 07/28/01 9:42A 07/28/01 1.32 FINAL Special screening for malign ant neoplasms, colon 07/26/2007 08/06/2009 Overview: Csope: :-nml -4-5 yrs ago Date ,prior polypectomy x 3 1979,s. Impaired fasting glucose 07/26/200702/2019 Overview: Nmzde16--4.3%, nl b12, fol, rpr, tsh, neg spep(DrKS) 07/26/2007: 111, HDl 38, waist circ_41"--- 105, a1c 6.1% --idx38--555, nml cmp, cbc INFORMATION 07/26/2007 11/15/2018 Overview: 07/29/2008--CPE 07/26/2007:new pt eval, pneumovax, 2003, Td < 5 yrs. Cyst of kidney, acquired 07/26/200702/2019 Overview: Kcjm94--Vmc) right cysts and left parapelvic cysts. There is no significant change from the prior examination. US renal::There are two cysts in the right kidney, one at the parapelvic region measures 1.4 cm and another cyst at the lower pole measures 2.5 cm. The left kidney is also normal in size measuring 12.8 cm. There are at three parapelvic cysts in the left kidney measuring up to 1.5 cm. : seen on MRI- sreekanth US---nml ua IVp nml . h/o CALCULUS OF KIDNEY 07/26/200711/15 Overview: H/O passing stone 4 yrs ago. Overweight (BMI 25.0-29.9) 07/26/2007 0 11/25/2017 Overview: 07/26/2007: BMI: 27.51 kg/m Mixed dyslipidemia 01/28/2006 9 Overview: Per Lipid Taxonomy. - same, LD 162, cknml, qemkgjdn750 Yjq54-qsg cbc, fbs 105, 6.1%, mg 2.2, ferr43, 229/150/37/162, --start zocor 20, fe 325 daily-(has not st yet) : nml cbc, BMP, FBS 111,217/135/38/153-LDL_D, TSH 2.41 h/o BLADDER NEOPLASM NOS 02/2019 Overview: Mar-nml ua, ur cs(h/o hematuria 03-17-08) Hjx34-WSlkc US-There are multiple bilateral renal cysts.. Owem65-Do.Fulmer- h/o superficial bladder cancer- Upper tract evaluation (IVP) is normal- no evidence of recurrence on cystoscopy. Will plan to have the patient RTC in 1 year for surveillance PLAN: RTC 1 year for UA and symptom review DX 1992, FOLLOWED BY UROLOGY DEPT AT [facility] [place] 04/2005 documented as of this encounter (statuses as of 01/09/2024) Immunizations Name Administration Dates Next Due COVID-19 mRNA, LNP-s, No Pre serve, 2-Dose Series (Han grass biomass) 05/04/2021,09/17/2020,08/20/2020 Covid-19, Mrna, Lnp-s, Pf, B ivalent, 30 Mcg, IM, 12 yrs and above (Pfizer) 04/14/2022 MMR - Measles/Mumps/Rubella Vaccine 01/24/2015,0 07/25/2014 PPD 04/12/2016,03/20/2014,05/05/2012 Pneumococcal Conjugate Vacc, 13 Valent (Prevnar) 11/15/2018 Pneumococcal Polysaccharide PPV23 (Pneumovax) 07/29/2008,05/23/2003 Season Influenza, Quad, PF, Adjuvanted, 65+ Yrs, IM (FLUAD) 05/02/2020 Seasonal Influenza, PF, 6 M & above, IM , (FluLaval or Fluzone) 05/14/2019 Seasonal Influenza, Quadriva lent Hd (Fluzone Hd) 08/24/2023,04/14/2022,05/04/2021 Seasonal Influenza, Quadriva lent, No Preserve, IM 05/05/2016,07/19/2015 Seasonal Influenza, Split, I IV3, With Preserve, Inj 06/12/2014,07/25/2013,04/06/2012,04/27,06/06/2010,09/03/2009,07/29/2008 TD, Preservative Free 11/04/2008,08/11/1998 TDAP (age 10 and older)(Boostrix) 01/10/2019 documented as of this encounter Social History Tobacco Use Types Packs/Day Years Used Date Smoking Tobacco: Former Cigarettes 1 25 0 07/11/1974 - 07/11/1999 Smokeless Tobacco: Never Comments:Quit 1999. Alcohol Use Standard Drinks/Week Comments No 0 (1 standard drink = 0.6 oz pur e alcohol) PHQ-2 Answer Date Recorded PHQ Adult Total Score 0 10/31/2023 Hunger Vital Sign Answer Date Recorded Within the past 12 months, y ou worried that your food would run out before you got the money to buy more. Never true 10/31/19 24 Within the past 12 months, t he food you bought just didn't last and you didn't have money to get more. Never true 10/31/2023 Childcare Answer Date Recorded Do you feel overwhelmed with taking care of a child, family member or friend? No 10/31/2023 Does your family need help f inding childcare? (Household - for ages 0-17 years) Not on file 10/31/2023 Clothing Answer Date Recorded Have you been unable to get clothing when it was really needed? No 10/31/2023 Is your family able to get c lothes or diapers when needed? (Household - for ages 0-17 years) Not on file 10/31/2023 Personal Safety Answer Date Recorded Do you feel unsafe or have concerns for your saf ety? No 10/31/2023 Do you have concerns for you r family's safety? (Household - for ages 0-17 years) Not on file 10/31/2023 Utilities Answer Date Recorded Do you have trouble paying y our heating, water, or electric bill? No 10/31/2023 Is your family able to pay t he heat, water, or electric bill? (Household - for ages 0-17 years) Not on file 10/31/2023 Does your family have access to good internet? (Household - for ages 0-17 years) Not on file 10/31/2023 Employment Status Answer Date Recorded Are you unemployed or without regular income? No 10/31/2023 Does the household have a [facility] source of income? (Household - for ages 0-17 years) Not on file 10/31/2023 Social Connections Answer Date Recorded How often do you feel lonely or isolated from th ose around you? Never 10/31/2023 Financial Resource Strain Answer Date R ecorded Do you have any trouble payi ng for your medications, or do you think you might in the future? No 10/31/2023 Does your family have troubl e paying for medicine? (Household - for ages 0-17 years) Not on file 10/31/2023 Transportation Needs Answer Date Record ed READ ONLY Do you have troubl e getting a ride to medical visits or work? Never True 10/31/2023 Does your family have a hard time getting a ride to doctors visits? (Household - for ages 0-17 years) Not on file 10/31/2023 Has lack of transportation k ept you from medical appointments, meetings, work, or from getting things needed for daily living? Check all that apply. (Adult - for ages 18 years and over) Not on file 10/31/2023 Do you (or your family) have trouble finding or paying for a ride (transportation)? (Household - for ages 0-17 years) Not on file 10/31/2023 Housing Stability Answer Date Recorded Do you currently live in a s helter or have no steady place to sleep at night? No 10/31/2023 READ ONLY Do you think you a re at risk of becoming homeless? No 10/31/2023 Does your family worry about paying for your home or becoming homeless? (Household - for ages 0-17 years) Not on file 0 10/31/2023 Are you homeless or worried that you might be in the future? (Adult - for ages 18 years and over) Not on file Are you (or your family) jac eless or worried that you might be in the future? (Household - for ages 0-17 years) Not on file Food Insecurity Answer Date Recorded Do you need food for this week? No 10/31/2023 Are you able to get enough f ood for your family? (Household - for ages 0-17 years) Not on file 10/31/2023 Does your family need food t his week? (Household - for ages 0-17 years) Not on file 10/31/2023 Do you always have enough fo od for your family? (Household - for ages 0-17 years) Not on file 10/31/2023 Sex and Gender Information Value Date Recorded Sex Assigned at Male 11/15/2018 2:31 PM EDT Gender Identity Male 11/15/2018 2:31 PM EDT Sexual Orientation Straight 11/15/2018 2: 31 PM EDT Job Start Date Occupation Industry Not on file Not on file Not on file documented as of this encounter Functional Status Functional Status Response Date of Assess ment Are you deaf or do you have serious difficulty h earing? No 01/26/2022 Are you blind or do you have serious difficulty seeing, even when wearing glasses? No 01/26/2022 Do you have serious difficul ty walking or climbing stairs? (5 years old or older) No 01/26/2022 Do you have difficulty dress ing or bathing? (5 years old or older) No 01/26/2022 Because of a physical, menta l, or emotional condition, do you have difficulty doing errands alone such as visiting a doctor s office or shopping? (15 years old or older) No 01/27/20 22 Cognitive Status Response Date of Assessm ent Because of a physical, menta l, or emotional condition, do you have serious difficulty concentrating, remembering, or making decisions? (5 years old or older) No 01/26/2022 documented as of this encounter Miscellaneous Notes * Telephone Encounter - Rose Romero OSA - 01/09/2024 12:59 PM EDT Called and spoke to pt, informed pt that form was completed and ready to be picked up. Copy made and sent to [facility]. Original placed at 1st floor checkout pickup drawer. * Telephone Encounter - Darian Mcnulty PA-C - 01/09/2024 6:23 AM EDT Form in the electric spot welder bin * Telephone Encounter - Jessica Coon OSA - 01/05/2024 10:41 AM EDT This is a different form it has a medication that needs addressed that is prescribed by [facility] pleasecomplete form and call pt. Thank you * Telephone Encounter - Darian Mcnulty PA-C - 01/04/2024 4:57 PM EDT I filled out a form from [employer] today. He needed his eye doctor to fill out their part. See if it the same form. * Telephone Encounter - Philomena Evans OSA - 01/04/2024 1:14 PM EDT Pt dropping of forms for [employer] Please complete for and call pt when form is ready Form placed in [facility] documented in this encounter Plan of Treatment Upcoming Encounters Date Type Department Care Team (Late st Contact Info) Description 01/18/2024 11:15 AM EDT Office Visit Otolaryngology/Head & Neck/Facial Plastic Surgery [address] [address] Roberto Silva MD [address] [facility] [facility] [place] [address] 02/23/2024 9:00 AM EDT [facility] Visit [facility] [place] [address] [phone] Darian Mcnulty PA-C [address] [address] 03/01/2024 10:20 AM EDT Office Visit Otolaryngology, [place] [address] [address] Dirk Jennings PA-C [address] [address] 03/05/2024 8:00 AM EDT Office Visit Gastroenterology, [place] [phone] Wanda Suresh PA-C [address] [address] 04/03/2024 12:50 PM EDT Office Visit Dermatology, [place] [address] [facility] [address] [address] Livier Lang PA-C [address] [phone] 05/08/2024 9:30 AM EDT Office Visit Cardiology, [place] [address] [address] Phillip Reich DO [address] [id number] Scheduled Procedures Name Priority Associated Diagnoses Date/Ti me ESOPHAGOGASTRODUODENOSCOPY ( EGD), FLEXIBLE, TRANSORAL, DIAGNOSTIC Recall Mckeon's esophagus with esophagitis COLONOSCOPY FLEXIBLE PROXIMAL DIAGNOSTIC Recall History of colonic polyps Abnormal finding on imaging Health Maintenance Due Date Last Done Comments Zoster Vaccines (1 of 2) 10/11/1993 Pneumococcal Vaccine: 65+ Years (3 of 3 - PPSV23 or PCV20) 11/16/2019 11/15/2018, 07/29/2008, 05/23/2003 COVID-19 Vaccine ( season) 2023 04/14/2022, 05/04/2021, 09/17/2020, Additional history exists Diabetic Eye Exam 12/02/2023 12/01/2022, , 03/14/2020, Additional history exists HbA1c 02/28/2024 08/30/2023, 0502/2023, 05/06/2022, Additional history exists Diabetic Foot Exam 02/29/2024 02/28/2023, 1 , 05/02/2020, Additional history exists Influenza Vaccine (FLU shot) (#1) 2024 08/24/2023, 04/14/2022, 05/04/2021, Additional history exists Albumin/Creatinine Ratio 08/30/20242 024, 11/15/2022, 05/04/2021, Additional history exists GFR 08/30/2024 08/30/2023, 05/0 02/2023, 09/13/2022, Additional history exists Depression Screening 10/30/2024 10/31/2023 Mckeon's Esophagus Surveilance 08/03/2025 08/03/2022, 08/03/2022, 11/15/2017, Additional history exists Colonoscopy 03/25/2026 03/25/2021, 03/11, 2018, Additional history exists DTaP,Tdap,and Td Vaccines (2 - Td or Tdap) 01/10/2029 01/10/2019, 11/04/2008, 08/11/1998 RETIRED - COLONOSCOPY-EVERY 5 YRS AGES 18-100 Discontinued 03/25/2021, 03/25/2021, 2018, Additional history exists GARDASIL-HPV IMMUNIZATION SERIES Aged Out No longer eligible based on patient's age to complete this topic Hepatitis B Aged Out No longer eligi ble based on patient's age to complete this topic MENINGOCOCCAL (MENACTRA/MENVEO) Aged Out No longer eligible based on patient's age to complete this topic documented as of this encounter Medical Devices Implanted Type Area Special Delivery Mail Carrier Device Identifier Shelf Expiration Date Model / Serial / Lot Taxus Liberte Atom-03/06/2009 Implanted:Qty: 1 on 03/06/2009 by Jones Siegel MD [facility] [employer] 12/22/2023 [id number] / / [id number] Xience V-03/07/2009 Implanted:Qty: 3 on 03/07/2009 by Yovani Sandhu MD [facility] [employer] [facility] : VASCULAR DEVICES 11/24/2023 [id number], [id number], [id number] / / [id number] documented as of this encounter Advance Directives * Full Code (Latest Code Status on File) Date Activated Date Inactivated Comments 11/05/2020 2:08 PM 11/07/2020 5:43 PM This order r eflects the patients wishes and were consensually agreed upon. * Full Code Date Activated Date Inactivated Comments 11/16/2019 2:06 AM 11/17/2019 10:15 PM This order re flects the patients wishes and were consensually agreed upon. Question Answer Comments Discussion of Advance Directives occurred with: Not Discussed * Full Code Date Activated Date Inactivated Comments 06/12/2018 3:24 PM 06/13/2018 8:50 PM This order r eflects the patients wishes and were consensually agreed upon. * Full Code Date Activated Date Inactivated Comments 12/07/2016 10:11 PM 12/10/2016 4:32 PM This order r eflects the patients wishes and were consensually agreed upon. * Full Code Date Activated Date Inactivated Comments 10/28/2015 4:52 AM 11/03/2015 5:39 PM This order r eflects the patients wishes and were consensually agreed upon. Question Answer Comments Discussion of Advance Directives occurred with: Patient Does the patient have a Living Will? No Does the patient have Health Care Power of Attor chuy? No Care Teams Tape Cutter Relationship Specialty Start Date End Date Darian Mcnulty PA-C [address] [phone] PCP - General Physician Alteration Inspector 09/27/18 documented as of this encounter
[2024-01-19] MEDS: oxyCODONE HCL IR 5 MG TAB (IMMEDIATE RELEASE) PO PRN (21:21)
[2024-01-19] MEDS: HYDROmorphone INJ 0.5 MG/0.5 ML SYR IV PRN (23:57)
[2024-01-20] MEDS: ACETAMINOPHEN 1,000 MG/100 ML VIAL IV PRN (05:39)
[2024-01-20] MEDS: amLODIPine BESYLATE 5 MG TAB PO SCH (07:17)
[2024-01-20] MEDS: MULTIVITAMIN TAB PO SCH (07:17)
[2024-01-20] MEDS: ASPIRIN 81 MG ECTAB PO SCH (07:18)
[2024-01-20] MEDS: PANTOprazole 40 MG TAB PO SCH (07:18)
[2024-01-20] MEDS: ATORVASTATIN 40 MG TAB PO SCH (07:18)
[2024-01-20 08:01] LABS: Basophils # (auto) 0.02 K/uL (0.00-0.20); Basophils % (auto) 0.2 %; Hemoglobin 12.2 g/dl (14.0-18.0); Immature Granulocytes # (auto) 0.05 K/uL (0.01-0.20); Immature Granulocytes % (auto) 0.4 %; Lymphocytes # (auto) 1.89 K/uL (1.20-3.40); Lymphocytes % (auto) 15.8 %; Mean Corpuscular Hemoglobin 30.9 pg (25.0-34.0); Mean Corpuscular Volume 93.7 fL (80.0-100.0); Monocytes # (auto) 1.63 K/uL (0.11-0.59); Monocytes % (auto) 13.6 %; Neutrophils # (auto) 8.41 K/uL (1.40-6.50); Platelet Count 210 K/uL (130-400); RDW Coefficient of Variation 13.7 % (11.5-14.5); RDW Standard Deviation 46.6 fL (36.4-46.3); Red Blood Count 3.95 M/uL (4.70-6.10)
[2024-01-20 08:25] LABS: Calcium 7.9 mg/dl (8.6-10.3); Creatinine Clr Calc Pharmacy 91.4 ml/min; Est GFR (African American) 97.8 ml/min; Est GFR (Non-African American) 84.4 ml/min; Potassium 3.8 mmol/L (3.5-5.1)
--- NOTE | 2024-01-20 10:25 | Pharmacy Report ---
Pharmacy Glycemic Sign Off Nt - Date of Service January 20, 2024 - Assessment & Plan ASSESSMENT: * Patient has refused 4 of 4 insulin doses. * Patient's currently prescribed insulin regimen is appropriate, if he were to accept insulin. * Current blood sugar is 171 mg/dL. * He has diabetes at baseline per his HbA1c but is not on outpatient medications. * Pharmacy is signing off now. Dr. Hayden is aware. PLAN FOR INPATIENT GLYCEMIC CONTROL: No changes needed to current regimen. * Continue NovoLog per scale ACHS/Q6hrs while NPO * Goal range = 110 140 mg/dl * CF = 25 mg/dl/unit * CR = 1 unit for ever 8 g CHO consumed * Pharmacy is signing off of glycemic consult and will no longer be making adjustments to inpatient regimen. Please feel free to re-consult if needed. Thank you.
--- NOTE | 2024-01-20 10:51 | Discharge Summary ---
Date of Service January 20, 2024 Admission HPI (Per Admitting) 78-year-old male known to me from a previous right shoulder arthroscopic rotator cuff repair presented more recently with ongoing pain. He did have an injury that resulted in recurrent shoulder pain and dysfunction. He presents today with the intention to proceed with right shoulder reverse arthroplasty for rotator cuff arthropathy, which we discussed in detail on November 09, 2023. In the interim he will call and asked to be surgically treated for carpal tunnel syndrome. Has had a longstanding history of hand pain and numbness with supportive electrodiagnostic studies and physical exam for the diagnosis of carpal tunnel syndrome. No changes to his health history. Admission Exam (Per Admitting) Right shoulder: No overlying skin lesions. Exam unchanged. Can touch the top of his head and internally rotate to his back pocket. Right hand: No significant atrophy. Intact light touch sensation throughout. Positive carpal tunnel compression test this morning. Negative Tinel's. Constitutional WD/WN, vitals as above Respiratory normal respiratory effort Psychiatric A+Ox3, euthymic affect Principal Diagnosis Same as "Discharge Diagnosis" noted below under Discharge Instructions. Discharge Exam RUE: Dressings are clean and dry and intact. Intact motor to finger extension and flexion. Sensation grossly intact to light touch to the digits. Some sensation in the axillary nerve appreciated today. Constitutional WD/WN, vitals as above Respiratory normal respiratory effort Psychiatric A+Ox3, euthymic affect Discharge Data Procedures Performed Operation Date: 01/19/24 08:45 Actual Procedures p Right Reverse Total Shoulder Arthroplasty, Biceps Tenodesis(Right) - Anshu Hayden MD s Right Open Carpal Tunnel Release(Right) - Anshu Hayden MD Ordered Studies 01/19/24 05:00 US - OR guided needle placemen Routine Hospital Course (1) Status post replacement of right shoulder joint: (2) S/P carpal tunnel release: Plan POD1 from right open carpal tunnel release and reverse shoulder arthroplasty. Making excellent progress. Observation stay noted for elevated Blood glucose. Patient refused insulin management. I counseled him to followup with his primary care provider soon regarding blood sugar management - he has diabetes based on HbA1c of 7.8. I discussed that there is an elevated risk of perioperative infection from unmanaged blood glucose. He has been evaluated by PT and OT. No barriers to discharge today. Routine pain mgt plan and perioperative antibiotic prophylaxis. PG Care Time/CCT Total # of Minutes Spent Total Time Spent with Patient: Total time spent is greater than 50% in coordination of care (as documented) at patient's floor/unit and/or counseling patient: Discharge Plan Discharge Items Patient Disposition: Home - Self-Care Reason For Visit: Right Rotator Cuff Tear Arthropathy, H/O Shoulder Discharge Diagnosis: same Activity: Per Instructions section Non-emergency contact: Surgeon Call non-emergency contact if: your pain is not controlled, you have a fever and your temperature is above 101.5 Follow-up/Referrals: Anshu Hayden MD [Surgeon] - PCP,ELZBIETA [Physician] - Diet: Carb Consistent or DM2 Addtl Attending Provider Instructions: Anshu Hayden M.D. [facility] [address] [place] [address] POSTOPERATIVE DISCHARGE INSTRUCTIONS SHOULDER ARTHROPLASTY Dressing Care: Leave the dressings in place for 3 days. After 3 days you may remove the dressings on your shoulder and your hand. If the incisions are not draining, you do not have to re-cover with dressing. Carmine and hand sutures will be removed at your postop appointment. If there is a little bit of drainage or if the wound is bothersome with your clothing, cover the incision with a dry dressing. Do not use any ointments or topical medications unless directed by your surgeon. Do not submerse the incisions in water no pools, oceans, lakes, jacuzzis, bathtubs, etc for at least 3 weeks. Showering: After 3 days you may remove the dressing and shower normally. Allow soap and water to run over the incision and pat dry. Do not scrub or soak the incision. Activity and Therapy Recommendations: - If you are not using home therapy then Outpatient Physical Therapy should start about 3-5 days from your day of surgery. Therapy will last about 8-12 weeks - Wear your sling for 3 weeks, unless otherwise instructed. You may remove your sling to shower and to dress, but otherwise, you should be in your sling at all times, including while sleeping - The shoulder replacement is very stable and you can use your hand while in the sling - You were shown a series of exercises in the hospital. Do these exercises daily including the exercises you were shown in physical therapy. - NO EXTERNAL ROTATION - do not reach out to your side. Pain Control: Use frequent ice to reduce amount of pain medications. Use for 30 minutes per hour. Do not leave in place longer than 30 minutes, especially when your block is in effect, to prevent frostbite or thermal injury. Medications: 1. Antibiotic (Cedroxil): one tablet (500mg) twice daily for 10 days. 2. Opioid: Oxycodone (OxyIR) 1-2 tablet(s) orally every 4 hours for pain as needed. Use with Tylenol. Begin tapering OxyIR as soon as possible: reduce from 2 to 1 pills per dose, then spread out the doses over greater time intervals, then try to use only for therapy or for comfort while sleeping. Continue to use regular Tylenol until pain subsides. 3. Tylenol (325mg): 3 tablets every 8 hours orally. Regular dosing of Tylenol is an important part of your baseline pain control. Do not taper Tylenol until you have successfully tapered off of regular OxyIR. Do not take more than 3000mg of Tylenol per day. 4. Zofran 1 tablet orally every 6 hours as needed for nausea related to anesthesia, pain, and narcotic medications OVER THE COUNTER: Narcotics will cause constipation. Colace and or Miralax can help while you are taking oxycodone or other narcotics. 5. Colace (100mg): take 1-2 tabs twice daily to avoid constipation from OxyIR or other narcotics. 6. Miralax 1 tablespoon in a glass of water 2 times daily until normal bowel movements - Other medications may be prescribed for specific circumstances. If you have any questions, please call the office at . - Resume previous home medications unless otherwise instructed Follow-Up: 1. Ortho Clinic with Dr. Hayden: You should be seen in 10-14 days. Please call immediately to schedule if you do not have an appointment. Pending Studies at Discharge: No Stand-Alone Forms: My [facility] Medications and DC Order Prescriptions: New ondansetron 4 mg tablet,disintegrating 4 mg PO Q6H PRN (Reason: nausea and vomiting) Qty: 10 0RF oxycodone 5 mg tablet 5 - 10 mg PO Q6H MDD 6 tablets PRN (Reason: post operative pain) Qty: 18 0RF cefadroxil 500 mg capsule 500 mg PO BID 10 Days Qty: 20 0RF Continued atorvastatin 40 mg tablet 80 mg PO QAM nitroglycerin 0.3 mg tablet, sublingual 0.3 mg sublingual Q5M PRN (Reason: Chest Pain) Rx Instructions: do not exceed 3 doses per episode fluorouracil 5 % cream 1 applic topical DIRECTED PRN (Reason: Rash) amlodipine 10 mg tablet 10 mg PO QAM Excedrin Extra Strength 250-250-65 mg tablet 1 tab PO Q6H PRN (Reason: Migraine Headache) loratadine [Claritin] 10 mg tablet 10 mg PO DAILY PRN (Reason: Allergy Symptoms) aspirin [Aspir-81] 81 mg Tablet,Delayed Release (Dr/Ec) 81 mg PO QAM pantoprazole 40 mg Tablet,Delayed Release (Dr/Ec) 40 mg PO QAM naproxen sodium [Aleve] 220 mg Tablet 220 mg PO BID PRN (Reason: Pain) naloxone [Narcan] 4 mg/actuation spray,non-aerosol 1 sprays INTNAS Q2M PRN (Reason: opioid overdose) Qty: 2 0RF Patient Comments: no longer taking 12/23/23 No Action tramadol 50 mg tablet 50 mg PO Q6H Patient Comments: takes Discharge Orders: Discharge Order (Routine); Ordered 01/20/24 Ordered By: Ruth Sutton Admission Data Admit Date/Time: 01/19/24 12:40 Attending Provider: Anshu Hayden Admit Provider: Anshu Hayden Primary Care Provider: Darian Mcnulty Other Interventions: Discharge Summary Assessment (RN) Last Done: 01/20/24 09:35
== END 2024-01-20 11:15 | disposition home or self-care (01) ==
LOC: 3E 06:59 → ASU 06:59

== ENCOUNTER 2024-01-23 10:08 | Inpatient (IN) ==
--- NOTE | 2024-01-23 10:52 | Emergency Department Note ---
Impression & Plan Post-operative pain, Pleural effusion on right, Atelectasis of right lung, Intractable pain ED Provider Note Name: KEVIN DUMONT Age: 78 Sex: Male Arrives Via: Walk-In Informant: Patient and his ED Provider: Edwin Chin MD Chief Complaint: Postoperative pain Impression: As per impressions above Medical Decision Making: Pleasant 78-year-old gentleman who recently had right shoulder reverse arthroplasty. Over the last 2 days severe worsening of pain. On examination no evidence of infectious etiology. Laboratory workup is fortunately unremarkable. He is mildly hypoxic and drops even further with ambulation. This is despite several hours post pain meds however pain did come back quite severely. He was given several rounds of IV narcotics with improvement in pain. CT of the chest does not reveal any PE but does show a small right pleural effusion and some atelectasis. Suspect he is having some postoperative respiratory insufficiency there is no evidence of respiratory failure. He does not have an evidence of pneumonia. He is already on antibiotics prophylactically and I do not see any indication of need for further antibiotics at this time. I did attempt to remove the dressing at his request but it was far too painful for him. Reviewed with his surgeon several times who agreed with plan for medicine evaluation of persistent hypoxia. Triage/Nursing Notes reviewed by Me Differential:Postoperative infection, postoperative pain, wearing off of nerve block, pneumonia, PE, effusion, pneumothorax, fracture, hardware displacement, many other pathologies considered Vital Signs: reviewed and remarkable for no significant abnormalities Interventions: Dilaudid IV x 3, normal saline bolus Labs:ED labs Reviewed by me and remarkable for only mild elevation of white blood cell count Imagin view chest x-ray as per my interpretation atelectasis of the right lower lung no infiltrate or pneumothorax appreciated. Mildly elevated right hemidiaphragm Cardiac Monitoring: An Order was placed for continuous cardiac monitoring. The monitor shows a rate of 70 with a normal sinus rhythm. Consults: Discussed with Dr. Hayden of orthopedic surgery. He agrees with plan for CT PE and discharged home if possible. Due to the amount of pain patient is having and his hypoxia he was agreeable to patient being evaluated by medicine service. [facility] and [facility] will further evaluate for management of patient Plan: Disposition:Hospitalization. Condition: Good History of Present Illness: 78-year-old male arrives for evaluation of postoperative pain. Patient notes he had a reverse shoulder arthroplasty done on 01/19/2024. Since then moderate amount of pain though rapidly worsened over the last 48 hours. Has been using his oxycodone that was prescribed with minimal relief. States severe pain within the right shoulder extending onto the right scapula and right side of her chest. Notes it hurts to make any movement or even take a deep breath. He is not feeling short of breath chest pain or palpitations though. He denies any swelling in his legs or calves. He states the pain shoots down his arm into his elbow and a bit into his forearm. He also did have a carpal tunnel release surgery. States he is able to feel his fingers and move them gently. notes that he has been feverish and warm to touch however has not had a measured temperature when she is checked. Past Medical History: Bilateral shoulder repairs, hypertension, dyslipidemia, GERD Home Medications:See Below Allergies: Tamsulosin Vitals:Blood Pressure: 129/77, Pulse 91, RR 18, T 36.5C, O2 90% on RA Physical Exam: GENERAL: Patient is very uncomfortable appearing and in moderate distress. RESPIRATORY: Crackles in the right lower lung otherwise no dyspnea. Clear to auscultation and equal bilaterally. CARDIOVASCULAR: Regular rate and rhythm.No murmur appreciated. GASTROINTESTINAL: Abdomen soft, non-tender, no peritonitis. BACK: No midline tenderness, no CVA tenderness EXTREMITIES: Right arm in sling. Large dressing over the right shoulder with surrounding cleansing agent. Under the right armpit along the chest wall there is some bruising and developing erythema. There is some mild erythema of the posterior right tricep. Hand with moderate swelling though good sensation and cap refill. NEUROLOGIC: Alert and oriented. No focal neurologic deficits appreciated SKIN: No rash, no jaundice, no diaphoresis. PSYCH: Appropriate GCS: 15 ED Course: Times/Reassessments: Persistent hypoxia despite allowing narcotic to wear off unfortunately quite severe pain is pain medications wear off Edwin Chin MD Past Med/Surg History Problem List Status post replacement of right shoulder joint Hyponatremia Anemia Elevated creatine kinase Hypoxia Right shoulder pain Intractable pain (Acute) Atelectasis of right lung (Acute) Pleural effusion on right (Acute) Post-operative pain (Acute) Status post replacement of right shoulder joint S/P carpal tunnel release Right carpal tunnel syndrome Complete tear of right rotator cuff Right rotator cuff tear arthropathy De Quervain's tenosynovitis, left Encounter for pre-operative examination Biceps tendinopathy H/O shoulder surgery left shoulder Hypertension Medical History Type II diabetes mellitus History of bladder cancer 1992- s/p tumor removal - no chemo or XRT- no current issues CAD (coronary artery disease) PCI with BRENDA x 3 to LAD 03/04/2009 (occluded LAD) BRENDA to LCx 03/06/2009 (high grade distal LCx stenosis) Hx of migraine headaches History of COVID-19 2019 - no residual issues Hypertension Hx of sepsis 2018 > unknown cause History of kidney stones Osteoarthritis Degenerative disc disease Chronic back pain Diverticular disease GERD (gastroesophageal reflux disease) well controlled and stable Hyperlipidemia Surgical History History of prostatectomy 2019 - patient unsure why prostate was removed History of repair of rotator cuff bilat H/O arthroscopic knee surgery right Hx of Achilles tendon repair left History of biopsy of bladder cancer 1992 > resolved History of cystoscopy History of colonoscopy History of esophagogastroduodenoscopy (EGD) History of cataract surgery bilateral History of adenoidectomy History of tonsillectomy History of heart artery stent x4 stents (February 2009)--unsure of type History of cardiac cath February [address] [facility] History of ankle surgery right trauma to ankle/reconstruction Family History Father Family history of diabetes mellitus Mother Family history of diabetes mellitus Sister Family history of diabetes mellitus Social History Smoking Status: Former smoker Second Hand Exposure: No; Do You Dip or Chew Tobacco: No; Hx Alcohol Use: No Hx Substance Use: No Preferred Language: Spanish Communication Ability: Effective Sisal Picker Required: No Beliefs That Will Affect Care: None Current Living Situation: Spouse Other Information That Helps Us Care for You: No Feels Safe at Home: Yes Assistive Devices: Glasses Assistive Devices Comment: Sling Allergies Allergies Allergy/AdvReac Type Severity Reaction Status Date / Time tamsulosin Allergy Intermediate "PASSED Verified 01/19/24 07:38 OUT" Home Meds Home Medications Medication Instructions Recorded Confirmed aspirin 81 mg tablet,delayed 81 mg PO QAM 05/28/19 01/23/24 release (Aspir-) naproxen sodium 220 mg tablet 440 mg PO BID PRN Pain 05/28/19 01/23/24 (Aleve) pantoprazole 40 mg tablet,delayed 40 mg PO BID 05/28/19 01/23/24 release amlodipine 10 mg tablet 10 mg PO QAM 11/10/23 01/23/24 [id number] 250 1 tab PO Q6H PRN Migraine Headache 11/10/23 01/23/24 mg-250 mg-65 mg tablet (Excedrin Extra Strength) atorvastatin 40 mg tablet 40 mg PO QAM 11/10/23 01/23/24 fluorouracil 5 % topical cream 1 applic topical DIRECTED PRN 11/10/23 01/23/24 Rash loratadine 10 mg tablet (Claritin) 10 mg PO DAILY 11/10/23 01/23/24 nitroglycerin 0.3 mg sublingual 0.3 mg sublingual Q5M PRN Chest 11/10/23 01/23/24 tablet Pain tramadol 50 mg tablet 100 mg PO Q6H PRN Severe Pain 11/10/23 01/23/24 (Scale Score 7-10) Previous Rx's Medication Instructions Recorded naloxone 4 mg/actuation nasal 1 sprays intranasal Q2M PRN opioid 05/31/19 spray (Narcan) overdose #2 ea cefadroxil 500 mg capsule 500 mg PO BID 10 days #20 caps 01/20/24 ondansetron 4 mg disintegrating 4 mg PO Q6H PRN nausea and 01/20/24 tablet vomiting #10 tabs oxycodone 5 mg tablet 5 - 10 mg (1 - 2 x 5 mg) PO Q6H 01/23/24 PRN post operative pain #18 tabs Results & Data (ED) Vital Signs Vital Signs - 24 hr 01/23/24 14:48 01/23/24 15:41 Pulse Rate [Apical] 86 81 Pulse Rhythm [Apical] Regular Respiratory Rate 12 14 Respiratory Effort / Characteristics Non-Labored Spontaneous Respiratory Depth Normal Respiratory Pattern Regular Blood Pressure [Left Arm] 154/86 H 155/78 H Blood Pressure Mean [Left Arm] 108 103 Blood Pressure Position [Left Arm] Semi-fowlers Pulse Oximetry 93 96 Oxygen Delivery Method Nasal Cannula Nasal Cannula Oxygen Flow Rate 2 2 Laboratory Data 01/24/24 06:19 01/24/24 06:19 Lab Results 01/23/24 01/23/24 Range/Units 10:50 11:37 WBC 12.62 H (4.8-10.8) K/ul RBC 4.06 L (4.70-6.10) M/uL Hgb 12.7 L (14.0-18.0) g/dl Hct 37.1 L (42.0-52.0) % MCV 91.4 (80.0-100.0) fL MCH 31.3 (25.0-34.0) pg MCHC 34.2 (32.0-36.0) g/dL RDW Std Deviation 45.6 (36.4-46.3) fL RDW Coeff of Tegan 13.4 (11.5-14.5) % Plt Count 242 (130-400) K/uL MPV 9.8 (9.4-12.4) fL Immature Gran % (Auto) 0.4 % Neut % (Auto) 71.2 % Lymph % (Auto) 11.5 % [place] % (Auto) 15.9 % Eos % (Auto) 0.7 % Baso % (Auto) 0.3 % Neut # (Auto) 8.98 H (1.40-6.50) K/uL Lymph # (Auto) 1.45 (1.20-3.40) K/uL [place] # (Auto) 2.01 H (0.11-0.59) K/uL Eos # (Auto) 0.09 (0.00-0.50) K/uL Baso # (Auto) 0.04 (0.00-0.20) K/uL Immature Gran # (Auto) 0.05 (0.01-0.20) K/uL Sodium 133 L (136-145) mmol/L Potassium 3.7 (3.5-5.1) mmol/L Chloride 98 (98-107) mmol/L Carbon Dioxide 27 (21-32) mmol/L Anion Gap 8 (3-11) BUN 22 (6-23) mg/dl Creatinine 1.02 (0.6-1.4) mg/dl Est Cr Clr Drug Dosing Not Reportable Est GFR ( Amer) 80.1 ml/min Est GFR (Non-Af Amer) 69.1 ml/min BUN/Creatinine Ratio 21.6 H (10-20) Glucose 179 H (70-99(Fasting)) mg/dl Lactate 0.7 (0.4-2.0) mmol/L Calcium 8.5 L (8.6-10.3) mg/dl Magnesium 2.0 (1.7-2.4) mg/dl Total Bilirubin 1.1 H (0.2-1.0) mg/dl Direct Bilirubin 0.3 H (0-0.2) mg/dl AST 19 (13-39) U/L ALT 12 (7-52) U/L Alkaline Phosphatase 66 (34-104) U/L Total Creatine Kinase 329 H (30-223) U/L Troponin I High Sens 10.3 (0-20) pg/ml Total Protein 7.0 (6.0-8.3) gm/dl Albumin 3.6 (3.4-5.0) gm/dl Procalcitonin 0.07 (0-0.5) ng/ml Administered Medications Amlodipine Besylate (Amlodipine Besylate 5 Mg Tab) 10 mg PO [facility] Stop: 02/23/24 08:59 Last Admin: 01/24/24 08:07 Dose: 10 mg Documented By: TAMI Aspirin (Aspirin 81 Mg Ectab) [facility] Stop: 02/23/24 08:59 Last Admin: 01/24/24 08:04 Dose: 81 mg Documented By: TAMI Atorvastatin Calcium (Atorvastatin 40 Mg Tab) [facility] Stop: 02/23/24 08:59 Last Admin: 01/24/24 08:06 Dose: 40 mg Documented By: TAMI Cephalexin HCl (Cephalexin 500 Mg Cap) 500 mg PO BID [facility] Stop: 01/30/24 21:59 Last Admin: 01/24/24 08:05 Dose: 500 mg Documented By: Admin: 01/23/24 22:03 Dose: 500 mg Documented By: GLENDY Enoxaparin Sodium (Enoxaparin Inj 40 Mg/0.4 Ml Syr) 40 mg SQ Q24H [facility] Stop: 02/22/24 20:59 Last Admin: 01/23/24 22:02 Dose: 40 mg Documented By: GLENDY Hydromorphone HCl (Hydromorphone Inj 0.5 Mg/0.5 Ml Syr) 0.5 mg IV Q6H PRN PRN Reason: Severe Pain (Scale 7, 8, 9,10) Stop: 02/06/24 20:50 Last Admin: 01/23/24 21:48 Dose: 0.5 mg Documented By: GLENDY Acetaminophen (Ofirmev) 1,000 mg in 100 mls @ 400 mls/hr IV Q8H [facility] Stop: 01/26/24 21:59 Last Infusion: 01/24/24 14:14 Dose: Infused Documented By: Admin: 01/24/24 13:20 Dose: 400 mls/hr Documented By: Infusion: 01/24/24 07:15 Dose: Infused Documented By: Admin: 01/24/24 06:42 Dose: 400 mls/hr Documented By: Infusion: 01/23/24 22:32 Dose: Infused Documented By: Admin: 01/23/24 21:47 Dose: 400 mls/hr Documented By: GLENDY Sodium Chloride (Nss) 1,000 mls @ 60 mls/hr IV .[id number] [facility] Stop: 01/25/24 06:10 Last Admin: 01/23/24 21:48 Dose: 60 mls/hr Documented By: GLENDY Ketorolac Tromethamine (Ketorolac Tromethamine 15 Mg/Ml Vial) 15 mg IV Q6H PRN PRN Reason: Mild-Mod Pain (Scale 1-6) Stop: 01/28/24 20:50 Last Admin: 01/24/24 02:52 Dose: 15 mg Documented By: GLENDY Lactobacillus Acidophilus (Advanced Probiotic 625 Mg Capsule) 1,250 mg PO DAILY [facility] Stop: 02/23/24 08:59 Last Admin: 01/24/24 08:09 Dose: 1,250 mg Documented By: TAMI Lidocaine (Lidocaine 5% 1 Patch) 1 patch TD QAM [facility] Stop: 02/23/24 08:59 Last Admin: 01/24/24 08:11 Dose: Not Given Documented By: TAMI Loratadine (Loratadine 10 Mg Tab) 10 mg PO DAILY [facility] Stop: 02/23/24 08:59 Last Admin: 01/24/24 08:19 Dose: Not Given Documented By: TAMI Oxycodone HCl (Oxycodone Hcl Ir 5 Mg Tab (Immediate Release)) 5 - 10 mg PO Q6H PRN PRN Reason: Mild Pain (Scale 1, 2, 3) Stop: 02/06/24 20:50 Last Admin: 01/24/24 13:17 Dose: 10 mg Documented By: Admin: 01/24/24 06:42 Dose: 10 mg Documented By: Admin: 01/23/24 21:48 Dose: 10 mg Documented By: GLENDY Pantoprazole Sodium (Pantoprazole 40 Mg Tab) 40 mg PO BID [facility] Stop: 02/22/24 20:59 Last Admin: 01/24/24 08:08 Dose: 40 mg Documented By: Admin: 01/23/24 22:02 Dose: 40 mg Documented By: GLENDY Polyethylene Glycol (Polyethylene (Miralax) 17 Gm Pack) 17 gm PO DAILY [facility] Stop: 02/23/24 08:59 Last Admin: 01/24/24 08:06 Dose: 17 gm Documented By: TAMI Tramadol HCl (Tramadol Hcl 50 Mg Tablet) 100 mg PO Q6H PRN PRN Reason: Severe Pain (Scale Score 7-10) Stop: 02/22/24 20:50 Last Admin: 01/24/24 11:13 Dose: 100 mg Documented By: Admin: 01/24/24 02:52 Dose: 100 mg Documented By: GLENDY Discontinued Medications Hydromorphone HCl (Hydromorphone Inj 1 Mg/Ml Syringe) 1 mg IV NOW STA Stop: 01/23/24 10:47 Last Admin: 01/23/24 11:11 Dose: 1 mg Documented By: ROMELIA Hydromorphone HCl (Hydromorphone Inj 1 Mg/Ml Syringe) 1 mg IV NOW STA Stop: 01/23/24 12:33 Last Admin: 01/23/24 12:41 Dose: 1 mg Documented By: ROMELIA Hydromorphone HCl (Hydromorphone Inj 0.5 Mg/0.5 Ml Syr) 0.5 mg IV NOW STA Stop: 01/23/24 15:25 Last Admin: 01/23/24 15:37 Dose: 0.5 mg Documented By: TI Hydromorphone HCl (Hydromorphone Inj 1 Mg/Ml Syringe) 1 mg IV NOW STA Stop: 01/23/24 17:54 Last Admin: 01/23/24 18:09 Dose: 1 mg Documented By: TI Sodium Chloride (Nss) 1,000 mls @ 999 mls/hr IV .Q1H1M ONE Stop: 01/23/24 11:46 Last Infusion: 01/23/24 12:49 Dose: Infused Documented By: Admin: 01/23/24 11:11 Dose: 999 mls/hr Documented By: ROMELIA Ioversol (Optiray 320 125ml) 115 ml IV ONCE ONE Stop: 01/23/24 14:41 Last Admin: 01/23/24 14:41 Dose: 115 ml Documented By: ZACK Lactulose (Lactulose Syrup 20 Gm/30 Ml Udc) 20 gm PO 0900 ONE Stop: 01/24/24 09:01 Last Admin: 01/24/24 08:10 Dose: 20 gm Documented By: TAMI Levalbuterol HCl (Levalbuterol 0.31mg/3 Ml Vial) 0.31 mg NEB Q6R [facility] Stop: 02/22/24 20:50 Last Admin: 01/24/24 07:20 Dose: 0.31 mg Documented By: Admin: 01/24/24 01:16 Dose: Not Given Documented By: EMLeslee Admin: 01/24/24 01:16 Dose: Not Given Documented By: PAMELA Ondansetron HCl (Ondansetron Inj 2 Mg/Ml 2 Ml Vial) 4 mg IV NOW STA Stop: 01/23/24 10:47 Last Admin: 01/23/24 11:11 Dose: 4 mg Documented By: ROMELIA Imaging Data Radiologist's Impression: Chest X-Ray 01/23/24 10:46 SINGLE VIEW CHEST CLINICAL HISTORY: Postoperative examination. FINDINGS: 2 AP, portable, upright chest radiographs are compared to study dated 12/26/2023. The heart is enlarged noting atherosclerotic calcification of the thoracic aorta. The pulmonary vasculature is noncongested. Chronic interstitial thickening and elevation of the right hemidiaphragm is similar to previous. There is bibasilar scarring/atelectasis. No airspace consolidation or large pleural effusion is identified. No pneumothorax is seen. The skeletal structures are osteopenic. The bony thorax is grossly intact. A right shoulder arthroplasty is in place. Skin clips, soft tissue edema, and subcutaneous gas overlying the right shoulder are expected postsurgical changes. IMPRESSION: Cardiomegaly with no active disease in the chest. ACT 112: Negative or not required by law. Electronically signed by: Ry Medina M.D. 01/23/2024 11:00 AM Chest CTA 01/23/24 12:32 CT angio chest PE protocol CLINICAL HISTORY: PE TECHNIQUE: Multidetector row helical CT of the chest was performed with angiographic protocol. Coronal and sagittal reformations were obtained. Coronal and sagittal MIPS were obtained from the axial data set and were submitted for review. Automated dose lowering techniques and/or adjustment according to patient size were utilized for this exam. CT DOSE: 934.56 mGy.cm Comparison: None available at the time of this dictation. FINDINGS: Lungs and pleura: Trace right pleural effusion is seen. There is bilateral atelectasis. Emphysema is seen. There is a 5 mm nodule in the left apex (series 4 image 190). Heart and pericardium: Heart size is normal. No pericardial effusion. Vessels: No evidence of pulmonary embolism. Moderate atherosclerotic disease is seen. Mediastinum and sallie: Subcentimeter lymph nodes are seen. Chest wall and lower neck: Subcutaneous emphysema and fat stranding is in the right chest wall. Abdomen: For findings below the diaphragm, please refer to CT of the abdomen dated the same. Bones: Degenerative changes in the thoracic spine. IMPRESSION: 1. No acute abnormality and in particular no evidence of pulmonary embolus. 2. Postsurgical changes in the right upper extremity. 3. Atelectasis and emphysema remain 4. 5 mm nodule in the left apex. According to Fleischner criteria, no follow-up is required in low risk patients, in high-risk patients, a 12 month follow-up CT can be optionally performed. ACT 112: Negative or not required by law. Electronically signed by: Shahram Jackson M.D. 01/23/2024 2:56 PM Discharge Plan Visit Data Chief Complaint: Shoulder Pain Stated Complaint: ROTATOR CUFF 01/19/24 IN EXCURCIATING PAIN R SHOUL ED Provider: Edwin Chin Discharge Problem: Post-operative pain, Pleural effusion on right, Atelectasis of right lung, Intractable pain Patient Disposition: Admitted As Inpatient Discharge Instructions Interventions: ED Discharge Assessment Last Done: 01/23/24 19:30
--- NOTE | 2024-01-23 11:01 | XRay Report ---
SINGLE VIEW CHEST CLINICAL HISTORY: Postoperative examination. FINDINGS: 2 AP, portable, upright chest radiographs are compared to study dated 12/26/2023. The heart is enlarged noting atherosclerotic calcification of the thoracic aorta. The pulmonary vasculature is noncongested. Chronic interstitial thickening and elevation of the right hemidiaphragm is similar to previous. There is bibasilar scarring/atelectasis. No airspace consolidation or large pleural effusio n is identified. No pneumothorax is seen. The skeletal structures are osteopenic. The bony thorax is grossly intact. A right shoulder arthroplasty is in place. Skin clips, soft tissue edema, and subcuta neous gas overlying the right shoulder are expected postsurgical changes. IMPRESSION: Cardiomegaly with no active disease in the chest. ACT 112: Negative or not required by law. Electronically signed by: Ry Medina M.D. 01/23/2024 11:00 AM
[2024-01-23] MEDS: HYDROmorphone INJ 1 MG/ML SYRINGE IV STA ×3 (11:11→18:09)
[2024-01-23] MEDS: SODIUM CHLORIDE 0.9% 1,000 ML IV ONE (11:11)
[2024-01-23] MEDS: ONDANSETRON INJ 2 MG/ML 2 ML VIAL IV STA (11:11)
[2024-01-23 11:19] LABS: Basophils # (auto) 0.04 K/uL (0.00-0.20); Basophils % (auto) 0.3 %; Eosinophils # (auto) 0.09 K/uL (0.00-0.50); Eosinophils % (auto) 0.7 %; Hematocrit (blood only) 37.1 % (42.0-52.0); Hemoglobin 12.7 g/dl (14.0-18.0); Immature Granulocytes # (auto) 0.05 K/uL (0.01-0.20); Immature Granulocytes % (auto) 0.4 %; Lymphocytes # (auto) 1.45 K/uL (1.20-3.40); Lymphocytes % (auto) 11.5 %; Mean Corpuscular Hemoglobin 31.3 pg (25.0-34.0); Mean Corpuscular Hgb Conc 34.2 g/dL (32.0-36.0); Mean Corpuscular Volume 91.4 fL (80.0-100.0); Mean Platelet Volume 9.8 fL (9.4-12.4); Monocytes # (auto) 2.01 K/uL (0.11-0.59); Monocytes % (auto) 15.9 %; Neutrophils # (auto) 8.98 K/uL (1.40-6.50); Neutrophils % (auto) 71.2 %; Platelet Count 242 K/uL (130-400); RDW Coefficient of Variation 13.4 % (11.5-14.5); RDW Standard Deviation 45.6 fL (36.4-46.3); Red Blood Count 4.06 M/uL (4.70-6.10); White Blood Count 12.62 K/ul (4.8-10.8)
[2024-01-23 11:25] LABS: Alanine Aminotransferase 12 U/L (7-52); Albumin Level 3.6 gm/dl (3.4-5.0); Alkaline Phosphatase 66 U/L (34-104); Anion Gap 8 (3-11); Aspartate Aminotransferase 19 U/L (13-39); BUN Creatinine Ratio 21.6 (10-20); Bilirubin Direct 0.3 mg/dl (0-0.2); Bilirubin,Total 1.1 mg/dl (0.2-1.0); Blood Urea Nitrogen 22 mg/dl (6-23); Calcium 8.5 mg/dl (8.6-10.3); Carbon Dioxide 27 mmol/L (21-32); Chloride 98 mmol/L (98-107); Creatine Kinase 329 U/L (30-223); Est GFR (African American) 80.1 ml/min; Est GFR (Non-African American) 69.1 ml/min; Glucose 179 mg/dl (70-99(Fasting)); Potassium 3.7 mmol/L (3.5-5.1); Sodium 133 mmol/L (136-145)
[2024-01-23 11:32] LABS: Troponin I High Sensitivity 10.3 pg/ml (0-20)
[2024-01-23] MEDS: OPTIRAY 320 125ml IV ONE (14:41)
--- NOTE | 2024-01-23 14:57 | CT Scan Report ---
CT angio chest PE protocol CLINICAL HISTORY: PE TECHNIQUE: Multidetector row helical CT of the chest was performed with angiographic protocol. Rivero l and sagittal reformations were obtained. Coronal and sagittal MIPS were obtained from the axial rocío a set and were submitted for review. Automated dose lowering techniques and/or adjustment according to patient size were utilized for this exam. CT DOSE: 934.56 mGy.cm Comparison: None available at the time of this dictation. FINDINGS: Lungs and pleura: Trace right pleural effusion is seen. There is bilateral atelectasis. Emphysema is seen. There is a 5 mm nodule in the left apex (series 4 image 190). Heart and pericardium: Heart size is normal. No pericardial effusion. Vessels: No evidence of pulmonary embolism. Moderate atherosclerotic disease is seen. Mediastinum and sallie: Subcentimeter lymph nodes are seen. Chest wall and lower neck: Subcutaneous emphysema and fat stranding is in the right chest wall. Abdomen: For findings below the diaphragm, please refer to CT of the abdomen dated the same. Bones: Degenerative changes in the thoracic spine. IMPRESSION: 1. No acute abnormality and in particular no evidence of pulmonary embolus. 2. Postsurgical changes in the right upper extremity. 3. Atelectasis and emphysema remain 4. 5 mm nodule in the left apex. According to Fleischner criteria, no follow-up is required in low r isk patients, in high-risk patients, a 12 month follow-up CT can be optionally performed. ACT 112: Negative or not required by law. Electronically signed by: Shahram Jackson M.D. 01/23/2024 2:56 PM
[2024-01-23] MEDS: HYDROmorphone INJ 0.5 MG/0.5 ML SYR IV STA (15:37)
--- NOTE | 2024-01-23 17:14 | History & Physical Report ---
Date of Service January 23, 2024 Assessment & Plan (1) Right shoulder pain: (2) Hypoxia: (3) Elevated creatine kinase: (4) Hyponatremia: (5) Anemia: Plan Ti Mathews is an 78y/o M with PMHx of metabolic syndrome, dyslipidemia, DM type II with diabetic polyneuropathy, chronic rhinitis, CAD s/p PCI to LAD [2008], HTN, history of RBBB, GERD, Mckeon's esophagus, BPH w/ LUTS, history of migraines, peripheral neuropathy, history of tobacco use and other problems listed below who presented to the ED secondary to worsening right shoulder pain. Post-Operative Right Shoulder Pain S/P Right Shoulder Arthroplasty --> Patient underwent right reverse shoulder arthroplasty and right carpal tunnel open release with Dr. Hayden last (01/18). Pt had been taking oral oxycodone 5-10mg 3-4x/day and oral tramadol 100mg 3- 4x/day W[employer] SALES CONSULTANT w/o much to any relief. Will continue his W[employer] SALES CONSULTANT oral pain medications for now, in addition to an IV pain regimen. Pt received a total of 3.5mg IV Dilaudid in ED w/ some relief. PRN IV pain regimen ordered in addition to scheduled IV Tylenol 1g Q8H. Also scheduled daily Miralax given risk of opioid-induced constipation. Pt also received a dose of IV Zofran in the ED for nausea - will continue PRN. Patient is currently taking prophylactic cefadroxil 500mg BID x 10 days - on day 4 of ABX therapy. This ABX was prescribed by Dr. Hayden on 01/19 --> will continue this ABX therapy. Orthopedic surgery consulted, appreciate their recommendations/input moving forward. Hypoxia - ? Post-operative respiratory insufficiency ? Patient became mildly hypoxic in the ED following administration of IV Dilaudid. His oxygen saturation went down to 88% at one point, and he was subsequently placed on 2L of oxygen via NC. Per ED provider, Dr. Chin, the patient's oxygen saturation dropped even further with ambulation. Patient is 94% SpO2 on 2L via NC at time of admission. Admitting CXR shows cardiomegaly w/ no active disease in the chest. Admitting chest CTA reveals no acute abnormality, no evidence of pulmonary embolus. * However, it did show the following: trace R pleural effusion, bilateral at electasis and emphysema. Will continue w/ 2L supplemental oxygen via NC. Close monitoring of respiratory status w/ continuous pulse ox. RVP negative, WBC slightly elevated at 12.62K. Procalcitonin, lactate WNL. Continue WIG SALES CONSULTANT cefadroxil. Pulmonary toilet w/ scheduled nebs, incentive spirometry and flutter valve. Elevated Creatinine Kinase CK 329 at time of admission. Will start gentle IVF w/ NSS @ 60cc/hr x 2 bags. Repeat CK level in AM, monitor and trend. Hyponatremia Sodium level 133 at time of admission. Will start gentle IVF w/ NSS @ 60cc/hr x 2 bags. Repeat CMP in AM, monitor sodium level. Anemia Hgb 12.7 on admission. Pre-operative Hgb 13.6 on 12/25. Baseline Hgb ~15 per chart review. Repeat CBC in AM, closely monitor Hgb level. HTN: BP stable at 145/77 at time of admission, can continue WIG SALES CONSULTANT amlodipine; continuous cardiac monitoring in place. Dyslipidemia: Can continue W[employer] SALES CONSULTANT atorvastatin therapy. DM Type II Pt not taking any diabetic medications WIG SALES CONSULTANT. BSG 179 on admission; Hgb A1c 7.8 on 12/26/23. CC, HH diet in place, will check BSG ACHS - monitor. DVT Prophylaxis: SQ Lovenox Code Status: FULL CODE PCP: Darian Mcnulty PA-C Disposition: Admit to Med/Surg w/ Telemetry Patient seen in collaboration with Dr. Franco. Please see addendum. I spent a total of 65 minutes coordinating, documenting, and providing care for this patient excluding time spent in the performance of separately billed services. This included personally reviewing all current laboratories and imaging studies, medical reconciliation, outpatient chart review and discussion with specialists. This chart was completed in part utilizing Speech Voice Recognition Software. Grammatical errors, random word insertions, pronoun errors, and incomplete sentences are an occasional consequence of this system due to software limitations, ambient noise, and hardware issues. Any formal questions or concerns about the content, text, or information contained within the body of this dictation should be directly addressed to the provider for clarification. History of Present Illness Chief Complaint: Right Shoulder Pain Primary Care Provider: Darian Mcnulty PA-C Ti Mathews is an 78y/o M with PMHx of metabolic syndrome, dyslipidemia, DM type II with diabetic polyneuropathy, chronic rhinitis, CAD s/p PCI to LAD [2009], H [place], history of RBBB, GERD, Mckeon's esophagus, BPH w/ LUTS, history of migraines, peripheral neuropathy, history of tobacco use and other problems listed below who presented to the ED secondary to worsening right shoulder pain. History obtained from patient, at bedside and associated chart review. Patient underwent right reverse shoulder arthroplasty and right carpal tunnel open release with Dr. Hayden last (01/18). Patient states he's been in excruciating pain ever since then. He has been taking oral oxycodone 5-10mg 3- 4x/day and oral tramadol 100mg 3-4x/day without much to any relief. He has been nauseous as well, but denies any episodes of vomiting. He has been taking oral Zofran at home, which helps to alleviate the nausea. His mentions that he is not eating or drinking well, maybe takes a few bites of food and sips here and there. His also notes that he has been sweating intermittently, but she has been taking his temperature often and has not noted any fevers. He denies any SOB, chest pain or abdominal pain. He mentions that he has not had a bowel movement since last Tuesday (01/16). He tried taking some laxatives the other day, but his reports that they did not work. Patient is currently taking prophylactic cefadroxil 500mg BID x 10 days, he is currently on day 4 of antibiotic therapy. The antibiotic was prescribed by Dr. Hayden on 01/19. Patient became mildly hypoxic in the ED following administration of IV Dilaudid. His oxygen saturation went down to 88% at one point, and he was subsequently placed on 2L of oxygen via NC. Per ED provider, Dr. Chin, the patient's oxygen saturation dropped even further with ambulation. Patient is 94% SpO2 on 2L via NC at time of admission. Dr. Chin reached out to make Dr. Hayden aware that the patient is being admitted - Dr. Hayden is agreeable with doing so and the plan moving forward. Allergies Allergy/AdvReac Type Severity Reaction Status Date / Time tamsulosin Allergy Intermediate "PASSED Verified 01/19/24 07:38 OUT" Home Medications Medication Instructions Recorded Confirmed Type aspirin 81 mg tablet,delayed 81 mg PO QAM 05/28/19 01/23/24 History release (Aspir-) naproxen sodium 220 mg tablet 440 mg PO BID PRN Pain 05/28/19 01/23/24 History (Aleve) pantoprazole 40 mg tablet,delayed 40 mg PO BID 05/28/19 01/23/24 History release naloxone 4 mg/actuation nasal 1 sprays intranasal Q2M PRN opioid 05/31/19 01/23/24 Rx spray (Narcan) overdose #2 ea amlodipine 10 mg tablet 10 mg PO QAM 11/10/23 01/23/24 History wrbrbbx-hdcbgrinjljlk-nvfrjbye 250 1 tab PO Q6H PRN Migraine Headache 11/10/23 01/23/24 History mg-250 mg-65 mg tablet (Excedrin Extra Strength) atorvastatin 40 mg tablet 40 mg PO QAM 11/10/23 01/23/24 History fluorouracil 5 % topical cream 1 applic topical DIRECTED PRN 11/10/23 01/23/24 History Rash loratadine 10 mg tablet (Claritin) 10 mg PO DAILY 11/10/23 01/23/24 History nitroglycerin 0.3 mg sublingual 0.3 mg sublingual Q5M PRN Chest 11/10/23 01/23/24 History tablet Pain ondansetron 4 mg disintegrating 4 mg PO Q6H PRN nausea and 01/20/24 01/23/24 Rx tablet vomiting #10 tabs L.acidop,casei,lactis,rham-B.lact,pricilla 1 cap PO DAILY #10 caps 01/24/24 Rx 625 mg (10 billion cell) capsule (Advanced Probiotic) oxycodone 10 mg tablet 10 mg PO Q6H PRN pain (scale score 01/24/24 Rx 7-10) #20 tabs polyethylene glycol 3350 17 gram 17 g PO DAILY while on narcotic 01/24/24 Rx oral powder packet (Miralax) #14 ea Past Med/Surg History Problem List (Updated 01/26/24 @ 00:07 by Background Daemon) Status post replacement of right shoulder joint Hyponatremia Anemia Elevated creatine kinase Hypoxia Right shoulder pain Intractable pain (Acute) Atelectasis of right lung (Acute) Pleural effusion on right (Acute) Post-operative pain (Acute) Status post replacement of right shoulder joint S/P carpal tunnel release Right carpal tunnel syndrome Complete tear of right rotator cuff Right rotator cuff tear arthropathy De Quervain's tenosynovitis, left Biceps tendinopathy H/O shoulder surgery left shoulder Hypertension Medical History Type II diabetes mellitus History of bladder cancer 1992- s/p tumor removal - no chemo or XRT- no current issues CAD (coronary artery disease) PCI with BRENDA x 3 to LAD 03/04/2009 (occluded LAD) BRENDA to LCx 03/06/2009 (high grade distal LCx stenosis) Hx of migraine headaches History of COVID-19 2019 - no residual issues Hypertension Hx of sepsis 2018 > unknown cause History of kidney stones Osteoarthritis Degenerative disc disease Chronic back pain Diverticular disease GERD (gastroesophageal reflux disease) well controlled and stable Hyperlipidemia Surgical History History of prostatectomy 2019 - patient unsure why prostate was removed History of repair of rotator cuff bilat H/O arthroscopic knee surgery right Hx of Achilles tendon repair left History of biopsy of bladder cancer 1992 > resolved History of cystoscopy History of colonoscopy History of esophagogastroduodenoscopy (EGD) History of cataract surgery bilateral History of adenoidectomy History of tonsillectomy History of heart artery stent x4 stents (February 2009)--unsure of type History of cardiac cath February 2009 @ [facility] History of ankle surgery right trauma to ankle/reconstruction Family History Father Family history of diabetes mellitus Mother Family history of diabetes mellitus Sister Family history of diabetes mellitus Social History Smoking Status: Former smoker Second Hand Exposure: No; Do You Dip or Chew Tobacco: No; Hx Alcohol Use: No Hx Substance Use: No Preferred Language: Divehi Communication Ability: Effective Orthotic Technician Required: No Beliefs That Will Affect Care: None Current Living Situation: Spouse Feels Safe at Home: Yes Assistive Devices: Glasses Review of Systems Review of Systems: At least ten systems reviewed and negative, except as noted in the HPI. Physical Exam Physical Exam: General: Patient is sitting up in bed, appears very uncomfortable, slightly diaphoretic, A+Ox3. HEENT: Normocephalic, atraumatic. Conjunctivae normal, anicteric sclerae. External ear and nose normal, oropharynx normal. Respiratory: Normal respiratory effort, mild crackles in RLL, otherwise clear to auscultation. No accessory muscle use. Cardiovascular: Regular rate, rhythm, no murmur, normal peripheral pulses, no BLE edema. Vessels: No JVD. Abdomen/GI: Normal bowel sounds, soft, nontender, no hepatosplenomegaly. Extremities/Musculoskeletal: R arm in sling, large dressing in place over R shoulder - no drainage or seeping, extreme pain w/ RUE movement. Neurologic: PERRL, EOMI, accommodation nl, no face palsy, no dysarthria, CN's II-XI not formally tested but appear grossly intact bilaterally. Skin: No rashes, normal color, warm/dry. Cleansing agent outlining R shoulder surgical site. Results & Data Results & Data Vital Signs (Past 12 Hours) Vital Signs Temp Pulse Pulse Resp BP BP Pulse Ox 01/23/24 15:41 81 14 155/78 H 96 01/23/24 14:48 86 12 154/86 H 93 01/23/24 12:45 85 20 147/79 H 93 01/23/24 12:44 88 L 01/23/24 11:18 85 01/23/24 10:22 36.5 C 91 H 18 129/77 90 O2 Del Method O2 Flow Rate 01/23/24 15:41 Nasal Cannula 2 01/23/24 14:48 Nasal Cannula 2 01/23/24 12:45 Nasal Cannula 2 01/23/24 12:44 Nasal Cannula 0 01/23/24 11:18 01/23/24 10:22 Room Air Laboratory Results Short CBC 01/23/24 Range/Units 10:50 WBC 12.62 H (4.8-10.8) K/ul Hgb 12.7 L (14.0-18.0) g/dl Hct 37.1 L (42.0-52.0) % Plt Count 242 (130-400) K/uL BMP 01/23/24 10:50 Sodium 133 L Potassium 3.7 Chloride 98 Carbon Dioxide 27 BUN 22 Creatinine 1.02 Glucose 179 H Calcium 8.5 L Cardiac Enzymes 01/23/24 Range/Units 10:50 Total Creatine Kinase 329 H (30-223) U/L Liver Function 01/23/24 Range/Units 10:50 Total Bilirubin 1.1 H (0.2-1.0) mg/dl Direct Bilirubin 0.3 H (0-0.2) mg/dl AST 19 (13-39) U/L ALT 12 (7-52) U/L Alkaline Phosphatase 66 (34-104) U/L Albumin 3.6 (3.4-5.0) gm/dl Diagnostic Findings Chest X-Ray 01/23/24 10:46 SINGLE VIEW CHEST CLINICAL HISTORY: Postoperative examination. FINDINGS: 2 AP, portable, upright chest radiographs are compared to study dated 12/26/2023. The heart is enlarged noting atherosclerotic calcification of the thoracic aorta. The pulmonary vasculature is noncongested. Chronic interstitial thickening and elevation of the right hemidiaphragm is similar to previous. There is bibasilar scarring/atelectasis. No airspace consolidation or large pleural effusion is identified. No pneumothorax is seen. The skeletal structures are osteopenic. The bony thorax is grossly intact. A right shoulder arthroplasty is in place. Skin clips, soft tissue edema, and subcutaneous gas overlying the right shoulder are expected postsurgical changes. IMPRESSION: Cardiomegaly with no active disease in the chest. ACT 112: Negative or not required by law. Electronically signed by: Ry Medina M.D. 01/23/2024 11:00 AM Chest CTA 01/23/24 12:32 CT angio chest PE protocol CLINICAL HISTORY: PE TECHNIQUE: Multidetector row helical CT of the chest was performed with angiographic protocol. Coronal and sagittal reformations were obtained. Coronal and sagittal MIPS were obtained from the axial data set and were submitted for [employer]. Automated dose lowering techniques and/or adjustment according to patient size were utilized for this exam. CT DOSE: 934.56 mGy.cm Comparison: None available at the time of this dictation. FINDINGS: Lungs and pleura: Trace right pleural effusion is seen. There is bilateral atelectasis. Emphysema is seen. There is a 5 mm nodule in the left apex (series 4 image 190). Heart and pericardium: Heart size is normal. No pericardial effusion. Vessels: No evidence of pulmonary embolism. Moderate atherosclerotic disease is seen. Mediastinum and sallie: Subcentimeter lymph nodes are seen. Chest wall and lower neck: Subcutaneous emphysema and fat stranding is in the right chest wall. Abdomen: For findings below the diaphragm, please refer to CT of the abdomen dated the same. Bones: Degenerative changes in the thoracic spine. IMPRESSION: 1. No acute abnormality and in particular no evidence of pulmonary embolus. 2. Postsurgical changes in the right upper extremity. 3. Atelectasis and emphysema remain 4. 5 mm nodule in the left apex. According to Fleischner criteria, no follow-up is required in low risk patients, in high-risk patients, a 12 month follow-up CT can be optionally performed. ACT 112: Negative or not required by law. Electronically signed by: Shahram Jackson M.D. 01/23/2024 2:56 PM Medications Administered Discontinued Medications Hydromorphone HCl (Hydromorphone Inj 1 Mg/Ml Syringe) 1 mg IV NOW STA Stop: 01/23/24 10:47 Last Admin: 01/23/24 11:11 Dose: 1 mg Documented By: ROMELIA Hydromorphone HCl (Hydromorphone Inj 1 Mg/Ml Syringe) 1 mg IV NOW STA Stop: 01/23/24 12:33 Last Admin: 01/23/24 12:41 Dose: 1 mg Documented By: ROMELIA Hydromorphone HCl (Hydromorphone Inj 0.5 Mg/0.5 Ml Syr) 0.5 mg IV NOW STA Stop: 01/23/24 15:25 Last Admin: 01/23/24 15:37 Dose: 0.5 mg Documented By: TI Sodium Chloride (Nss) 1,000 mls @ 999 mls/hr IV .Q1H1M ONE Stop: 01/23/24 11:46 Last Infusion: 01/23/24 12:49 Dose: Infused Documented By: Admin: 01/23/24 11:11 Dose: 999 mls/hr Documented By: ROMELIA Ioversol (Optiray 320 125ml) 115 ml IV ONCE ONE Stop: 01/23/24 14:41 Last Admin: 01/23/24 14:41 Dose: 115 ml Documented By: ZACK Ondansetron HCl (Ondansetron Inj 2 Mg/Ml 2 Ml Vial) 4 mg IV NOW STA Stop: 01/23/24 10:47 Last Admin: 01/23/24 11:11 Dose: 4 mg Documented By: NRB Code Status & VTE Plan Code Status FULL CODE VTE Prophylaxis Plan VTE Prophylaxis will be ordered: Yes Supervising Physician Co-Signing Physician Notes delayed entry date of service noted above Attending Addendum: Case reviewed with the advanced practitioner. I have personally performed a history and physical examination on the patient. I have reviewed the advanced practitioner's documentation on the date of service referenced in note, and I agree with, and take responsibility for the plan of care. please refer to her notes for full details patient seen and examined, records reviewed by myself as well total time spent ~30 minutes including interview, physical exam, reviewing the chart, labs, coordinating care, formulating plan with ANKIT. Rafael Franco MD (1) Right shoulder pain Chronicity: acute Qualified Code(s): M25.511 - Pain in right shoulder (5) Anemia Anemia type: unspecified type Qualified Code(s): D64.9 - Anemia, unspecified
[2024-01-23 18:48] LABS: Adenovirus PCR Not Detected (NotDetected); Bordetella parapertussis PCR Not Detected (NotDetected); Bordetella pertussis PCR Not Detected (NotDetected); Chlamydia pneumoniae PCR Not Detected (NotDetected); Coronavirus 229E PCR Not Detected (NotDetected); Coronavirus CoV-2 (COVID19)PCR Not Detected (NotDetected); Coronavirus HKU1 PCR Not Detected (NotDetected); Coronavirus NL63 PCR Not Detected (NotDetected); Coronavirus OC43PCR Not Detected (NotDetected); Human Metapneumovirus PCR Not Detected (NotDetected); Influenza A PCR Not Detected (NotDetected); Influenza B PCR Not Detected (NotDetected); Mycoplasma pneumoniae PCR Not Detected (NotDetected); Parainfluenza Virus 1 PCR Not Detected (NotDetected); Parainfluenza Virus 2 PCR Not Detected (NotDetected); Parainfluenza Virus 3 PCR Not Detected (NotDetected); Parainfluenza Virus 4 PCR Not Detected (NotDetected); Respiratory Syncytial VirusPCR Not Detected (NotDetected); Rhinovirus/Enterovirus PCR Not Detected (NotDetected)
[2024-01-23] MEDS ORDERED: ONDANSETRON INJ 2 MG/ML 2 ML VIAL IV PRN (20:51)
[2024-01-23] MEDS: ACETAMINOPHEN 1,000 MG/100 ML VIAL IV SCH (21:47)
[2024-01-23] MEDS: oxyCODONE HCL IR 5 MG TAB (IMMEDIATE RELEASE) PO PRN (21:48)
[2024-01-23] MEDS: HYDROmorphone INJ 0.5 MG/0.5 ML SYR IV PRN (21:48)
[2024-01-23] MEDS: SODIUM CHLORIDE 0.9% 1,000 ML IV SCH (21:48)
[2024-01-23] MEDS: ENOXAPARIN INJ 40 MG/0.4 ML SYR SQ SCH (22:02)
[2024-01-23] MEDS: PANTOprazole 40 MG TAB PO SCH (22:02)
[2024-01-23] MEDS: cephALEXin 500 MG CAP PO SCH (22:03)
[2024-01-23 23:07] LABS: Appearance Urine Clear (Clear); Bacteria Urine Automated None Seen (None Seen); Bilirubin Urine 1+ (Negative); Blood Urine Negative (Negative); Cast Urine Automated 0-2 /lpf (0-2); Color Urine Dark Yellow; Epithelial Cell Urine Auto 0-2 /hpf (0-2); Glucose Urine UA Negative (Negative); Ketones Urine Trace (Negative); Leukocyte Esterase Urine Negative (Negative); Nitrite Urine Negative (Negative); Protein Urine 1+ (Negative); RBC Urine Automated 0-2 /hpf (0-2); Specific Gravity Urine > 1.045 (1.000-1.030); Urobilinogen Urine Negative (Negative); WBC Urine Automated 0-5 /hpf (0-5)
[2024-01-24] MEDS: LEVALBUTEROL 0.31MG/3 ML VIAL NEB SCH (01:16)
[2024-01-24] MEDS: traMADol HCL 50 MG TABLET PO PRN (02:52)
[2024-01-24] MEDS: KETOROLAC TROMETHAMINE 15 MG/ML VIAL IV PRN (02:52)
[2024-01-24 06:55] LABS: Hematocrit (blood only) 34.4 % (42.0-52.0); Hemoglobin 11.5 g/dl (14.0-18.0); Mean Corpuscular Hemoglobin 31.1 pg (25.0-34.0); Mean Corpuscular Hgb Conc 33.4 g/dL (32.0-36.0); Mean Platelet Volume 9.8 fL (9.4-12.4); Platelet Count 212 K/uL (130-400); RDW Coefficient of Variation 13.4 % (11.5-14.5); RDW Standard Deviation 46.1 fL (36.4-46.3); White Blood Count 9.42 K/ul (4.8-10.8)
[2024-01-24 07:19] LABS: Albumin Globulin Ratio 1.1 (0.9-2); Albumin Level 3.1 gm/dl (3.4-5.0); Bilirubin,Total 0.9 mg/dl (0.2-1.0); Creatinine Clr Calc Pharmacy 89.2 ml/min; Est GFR (African American) 96.8 ml/min; Est GFR (Non-African American) 83.5 ml/min; Globulin 2.9 gm/dl (2.5-4.0); Phosphorus 3.4 mg/dl (2.5-4.9); Potassium 3.7 mmol/L (3.5-5.1)
--- NOTE | 2024-01-24 07:34 | XRay Report ---
XR shoulder RT min 2V routine CLINICAL HISTORY: pain, grashey AP and transcapular lateral COMPARISON: Right shoulder radiographs January 19, 2024. FINDINGS: Alignment of the reverse total right shoulder arthroplasty remains anatomic. Skin jose alfredo are noted. Soft tissue gas is postsurgical. There are no unexpected radiopaque foreign bodies. There is no periprosthetic fracture. Hardware is intact. IMPRESSION: Status post reverse total right shoulder arthroplasty. No periprosthetic fracture. No une xpected radiopaque foreign bodies. ACT 112: Negative or not required by law. Electronically signed by: Brennan Whiteside M.D. 01/24/2024 7:32 AM
[2024-01-24 07:39] VITALS: RESP 20; O2SAT 92
--- NOTE | 2024-01-24 08:03 | Hospitalist Progress Note ---
Date of Service January 24, 2024 Assessment & Plan (1) Right shoulder pain: (2) Hypoxia: (3) Elevated creatine kinase: (4) Hyponatremia: (5) Anemia: Plan Ti Mathews is an 78y/o M with PMHx of metabolic syndrome, dyslipidemia, DM type II with diabetic polyneuropathy, chronic rhinitis, CAD s/p PCI to LAD [2008], HTN, history of RBBB, GERD, Mckeon's esophagus, BPH w/ LUTS, history of migraines, peripheral neuropathy, history of tobacco use and other problems listed below who presented to the ED secondary to worsening right shoulder pain. Post-Operative Right Shoulder Pain S/P Right Shoulder Arthroplasty --> Patient underwent right reverse shoulder arthroplasty and right carpal tunnel open release with Dr. Hayden last (01/18). Acute As outpatient was taking PO Oxycodone 5-10mg 3-4x/day and oral tramadol 100mg 3- 4x/day w/o much to any relief. Will continue his INSURANCE ACCOUNT SPECIALIST oral pain medications for now, in addition to an IV pain regimen. 01/23: 24 hour pain medication use: * Tramadol 100 mg ONE dose/24 hours * Ketorolac ONE dose/24 hours * Dilaudid 0.5 mg ONE dose/24 hours * Oxycodone 5mg ONE dose/24 hours * scheduled Tylenol daily Miralax given risk of opioid-induced constipation. Zofran PRN Continue prophylactic cefadroxil 500mg BID x 10 days - 01/23 day 5 of ABX therapy ; prescribed by Dr. Hayden on 01/19 Orthopedic surgery consulted, appreciate their recommendations/input moving forward. Hypoxia Acute Patient became mildly hypoxic in the ED following administration of IV Dilaudid. His oxygen saturation went down to 88% at one point, and he was subsequently placed on 2L of oxygen via NC. Per ED provider, Dr. Chin, the patient's oxygen saturation dropped even further with ambulation. Patient is 94% SpO2 on 2L via NC at time of admission. Admitting CXR shows cardiomegaly w/ no active disease in the chest. Admitting chest CTA reveals no acute abnormality, no evidence of pulmonary embolus. * However, it did show the following: trace R pleural effusion, bilateral atelectasis and emphysema. Weaned from 2LNC to RA overnight; saturations > 92% WBC improved; 12--> 9.42 on 01/23 Procalcitonin, lactate WNL. Continue INSURANCE ACCOUNT SPECIALIST cefadroxil. Pulmonary toilet w/ scheduled nebs, incentive spirometry and flutter valve. Elevated Creatinine Kinase Acute CK 329 at time of admission; received 2L IVF CK level improved this AM 144 Resolved; likely secondary to s/p surgery Hyponatremia Acute Sodium level 133 at time of admission--> 136 on 01/23 Received IVF x2; discontinue IVF Resolved Anemia Acute Hgb 12.7 on admission--> 01/23 11.5 Pre-operative Hgb 13.6 on 12/25. Baseline Hgb ~15 per chart review. Repeat CBC in AM, closely monitor Hgb level. HTN: Chronic Stable Takes Amlodipine; continue Dyslipidemia: Chronic stable Continue atorvastatin DM Type II Chronic Stable Does not take any antidiabetic medications at home Hgb A1c 7.8 on 12/26/23 CC, HH diet in place, will check BSG ACHS Disposition: DVT Prophylaxis: SQ Lovenox Code Status: FULL CODE PCP: Darian Mcnulty PA-C Med/Surg w/ Telemetry I spent a total of 62 minutes coordinating, documenting, and providing care for this patient excluding time spent in the performance of separately billed services. All of the aforementioned completed while collaborating with the assigned attending physician for a full treatment plan. Please see their addendum for further details. This chart was completed in part utilizing Speech Voice Recognition Software. Grammatical errors, random word insertions, pronoun errors, and incomplete sentences are an occasional consequence of this system due to software limitations, ambient noise, and hardware issues. Any formal questions or concerns about the content, text, or information contained within the body of this dictation should be directly addressed to the provider for clarification. Admission and Anticipated Discharge Date Admission Date: January 23, 2024 Review of Systems Review of Systems: Neuro: (-) Falls, trauma, slurred speech HEENT: (-) NEVES, dizziness, dysphagia, visual or auditory changes CV: (-) CP, palpitations, swelling Resp: (-) SOB GI: (-) appetite changes, N/V/D, bowel changes : (-) urinary changes Skin: (-) rashes Psych: (-) anxiety, depression Physical Exam Physical Exam: Neuro: AAOx4, PERRLA, no aphagia, memory changes, CNII-XII grossly intact HEENT: head normocephalic, moist mucus membranes CV: S1/S2, (-) M/G/R, (-) edema, cap refill < 3 seconds Resp: Lungs CTA in all zhou. On RA GI: Abdomen S/NT/ND, Ax4 bowel sounds, (-) CVA tenderness Musculoskeletal: 5/5 B/L UE strength, 5/5 B/L LE strength. No gait disturbance Skin: (-) rashes , (-) erythema. Psych: euthymic mood Results & Data Results & Data Vital Signs (Past 12 Hours) Vital Signs Temp Pulse Pulse Pulse Resp BP Pulse Ox 01/24/24 07:37 36.6 C 80 20 152/79 H 92 01/24/24 07:22 78 17 97 01/24/24 02:55 36.5 C 78 18 169/81 H 92 01/24/24 00:30 36.6 C 89 18 154/77 H 93 01/23/24 23:28 86 01/23/24 20:51 83 01/23/24 20:51 36.6 C 89 18 154/77 H 93 O2 Del Method 01/24/24 07:37 Room Air 01/24/24 07:22 Room Air 01/24/24 02:55 Room Air 01/24/24 00:30 Room Air 01/23/24 23:28 01/23/24 20:51 01/23/24 20:51 Room Air Laboratory Results Short CBC 01/23/24 01/24/24 Range/Units 10:50 06:19 WBC 12.62 H 9.42 (4.8-10.8) K/ul Hgb 12.7 L 11.5 L (14.0-18.0) g/dl Hct 37.1 L 34.4 L (42.0-52.0) % Plt Count 242 212 (130-400) K/uL BMP 01/23/24 01/24/24 10:50 06:19 Sodium 133 L 136 Potassium 3.7 3.7 Chloride 98 101 Carbon Dioxide 27 29 BUN 22 18 Creatinine 1.02 0.82 Glucose 179 H 129 H Calcium 8.5 L 8.0 L Cardiac Enzymes 01/23/24 01/24/24 Range/Units 10:50 06:19 Total Creatine Kinase 329 H 144 (30-223) U/L Liver Function 01/23/24 01/24/24 Range/Units 10:50 06:19 Total Bilirubin 1.1 H 0.9 (0.2-1.0) mg/dl Direct Bilirubin 0.3 H (0-0.2) mg/dl AST 19 15 (13-39) U/L ALT 12 11 (7-52) U/L Alkaline Phosphatase 66 57 (34-104) U/L Albumin 3.6 3.1 L (3.4-5.0) gm/dl Urine 01/23/24 Range/Units Unknown Urine Color Dark Yellow Urine Appearance Clear (Clear) Urine pH 6.0 (4.5-7.5) Ur Specific [place] > 1.045 H (1.000-1.030) Urine Protein 1+ H (Negative) Urine Glucose (UA) Negative (Negative) Diagnostic Findings Shoulder X-Ray 01/23/24 20:00 XR shoulder RT min 2V routine CLINICAL HISTORY: pain, grashey AP and transcapular lateral COMPARISON: Right shoulder radiographs January 19, 2024. FINDINGS: Alignment of the reverse total right shoulder arthroplasty remains anatomic. Skin jose alfredo are noted. Soft tissue gas is postsurgical. There are no unexpected radiopaque foreign bodies. There is no periprosthetic fracture. Hardware is intact. IMPRESSION: Status post reverse total right shoulder arthroplasty. No periprosthetic fracture. No unexpected radiopaque foreign bodies. ACT 112: Negative or not required by law. Electronically signed by: Brennan Whiteside M.D. 01/24/2024 7:32 AM (1) Right shoulder pain Chronicity: acute Qualified Code(s): M25.511 - Pain in right shoulder (5) Anemia Anemia type: unspecified type Qualified Code(s): D64.9 - Anemia, unspecified
[2024-01-24] MEDS: ASPIRIN 81 MG ECTAB PO SCH (08:04)
[2024-01-24] MEDS: POLYETHYLENE (MIRALAX) 17 GM PACK PO SCH (08:06)
[2024-01-24] MEDS: ATORVASTATIN 40 MG TAB PO SCH (08:06)
[2024-01-24] MEDS: amLODIPine BESYLATE 5 MG TAB PO SCH (08:07)
[2024-01-24] MEDS: ADVANCED PROBIOTIC 625 MG CAPSULE PO SCH (08:09)
[2024-01-24] MEDS: LACTULOSE SYRUP 20 GM/30 ML UDC PO ONE (08:10)
[2024-01-24] MEDS: LIDOCAINE 5% 1 PATCH TD SCH (08:11)
[2024-01-24] MEDS: LORATADINE 10 MG TAB PO SCH (08:19)
--- NOTE | 2024-01-24 08:54 | Orthopedic Consultation ---
Date of Service January 24, 2024 Assessment & Plan (1) Status post replacement of right shoulder joint: -He was in significant pain last evening, however he is managed at this time with IV Toradol, IV Tylenol as well as alternating oxycodone and tramadol. We would like to wean him down to only oxycodone. This is what he will be taking upon discharge. He was instructed to stop the tramadol at home and just take the oxycodone. We will update his discharge paperwork as well to reflect this. -He should remain in his sling as fit appropriately. He should elevate his right hand as best as he can, specifically by using the sling to essentially pledge/hold his upper chest with his hand. -He will begin physical therapy once he is discharged for his right shoulder. Physical therapy is slow/gradual after this type of surgery, therefore do not need any specific physical therapy in the hospital today. -Wound check was satisfactory. He may cover it if it is draining or if it is bothersome to him. It may remain open without coverage at this time. -Management of medical comorbidities, including hypoxia and diabetic control, as per the hospitalist team. -Please reach out with any other questions or concerns. (2) S/P carpal tunnel release: - elevation of right hand as noted above. (3) Right shoulder pain: History of Present Illness Reason for Consultation: s/p right reverse shoulder replacement, s.p right carpal tunnel release Requesting Physician: . Attending Physician: Abby Vega MD Operation Date: 01/19/24 08:45 Actual Procedures p Right Reverse Total Shoulder Arthroplasty, revision open biceps Tenodesis(Right) - Anshu Hayden MD s Right Open Carpal Tunnel Release(Right) - Anshu Hayden MD Ti is an 78-year-old male who is being consulted today as he is status post right reverse total shoulder arthroplasty as well as right open carpal tunnel r elease by Dr. Hayden on 01/19/2024. He did report to the emergency department yesterday, on 01/23/2024 due to multiple concerns, including uncontrollable right shoulder pain, chest pain, shortness of breath, hand pain. He was found to be hypoxic in the emergency department and was admitted for further observation. At my visit today, the patient is comfortable in his hospital bed. They did change his dressing last evening. I did take the dressing off for a wound check. He may leave the wound open. He does state that his pain is much better. He is comfortable today. He states that he was taking oxycodone and tramadol at home with no relief. Workup in the emergency department was negative for any other acute abnormalities. He was found to have a pleural effusion and bilateral atelectasis. Patient denies any other questions or concerns today. Allergies Allergy/AdvReac Type Severity Reaction Status Date / Time tamsulosin Allergy Intermediate "PASSED Verified 01/19/24 07:38 OUT" Home Medications Medication Instructions Recorded Confirmed Type aspirin 81 mg tablet,delayed 81 mg PO QAM 05/28/19 01/23/24 History release (Aspir-) naproxen sodium 220 mg tablet 440 mg PO BID PRN Pain 05/28/19 01/23/24 History (Aleve) pantoprazole 40 mg tablet,delayed 40 mg PO BID 05/28/19 01/23/24 History release naloxone 4 mg/actuation nasal 1 sprays intranasal Q2M PRN opioid 05/31/19 01/23/24 Rx spray (Narcan) overdose #2 ea amlodipine 10 mg tablet 10 mg PO QAM 11/10/23 01/23/24 History pjqvbwe-thrjvlpxyevnd-ragtopnu 250 1 tab PO Q6H PRN Migraine Headache 11/10/23 01/23/24 History mg-250 mg-65 mg tablet (Excedrin Extra Strength) atorvastatin 40 mg tablet 40 mg PO QAM 11/10/23 01/23/24 History fluorouracil 5 % topical cream 1 applic topical DIRECTED PRN 11/10/23 01/23/24 History Rash loratadine 10 mg tablet (Claritin) 10 mg PO DAILY 11/10/23 01/23/24 History nitroglycerin 0.3 mg sublingual 0.3 mg sublingual Q5M PRN Chest 11/10/23 01/23/24 History tablet Pain tramadol 50 mg tablet 100 mg PO Q6H PRN Severe Pain 11/10/23 01/23/24 History (Scale Score 7-10) cefadroxil 500 mg capsule 500 mg PO BID 10 days #20 caps 01/20/24 01/23/24 Rx ondansetron 4 mg disintegrating 4 mg PO Q6H PRN nausea and 01/20/24 01/23/24 Rx tablet vomiting #10 tabs oxycodone 5 mg tablet 5 - 10 mg (1 - 2 x 5 mg) PO Q6H 01/23/24 01/23/24 Rx PRN post operative pain #18 tabs Past Med/Surg History Problem List Status post replacement of right shoulder joint Hyponatremia Anemia Elevated creatine kinase Hypoxia Right shoulder pain Intractable pain (Acute) Atelectasis of right lung (Acute) Pleural effusion on right (Acute) Post-operative pain (Acute) Status post replacement of right shoulder joint S/P carpal tunnel release Right carpal tunnel syndrome Complete tear of right rotator cuff Right rotator cuff tear arthropathy De Quervain's tenosynovitis, left Encounter for pre-operative examination Biceps tendinopathy H/O shoulder surgery left shoulder Hypertension Medical History Type II diabetes mellitus History of bladder cancer 1992- s/p tumor removal - no chemo or XRT- no current issues CAD (coronary artery disease) PCI with BRENDA x 3 to LAD 03/04/2009 (occluded LAD) BRENDA to LCx 03/06/2009 (high grade distal LCx stenosis) Hx of migraine headaches History of COVID-19 2019 - no residual issues Hypertension Hx of sepsis 2018 > unknown cause History of kidney stones Osteoarthritis Degenerative disc disease Chronic back pain Diverticular disease GERD (gastroesophageal reflux disease) well controlled and stable Hyperlipidemia Surgical History History of prostatectomy 2019 - patient unsure why prostate was removed History of repair of rotator cuff bilat H/O arthroscopic knee surgery right Hx of Achilles tendon repair left History of biopsy of bladder cancer 1992 > resolved History of cystoscopy History of colonoscopy History of esophagogastroduodenoscopy (EGD) History of cataract surgery bilateral History of adenoidectomy History of tonsillectomy History of heart artery stent x4 stents (February 2009)--unsure of type [facility] History of ankle surgery right trauma to ankle/reconstruction Family History Father Family history of diabetes mellitus Mother Family history of diabetes mellitus Sister Family history of diabetes mellitus Social History Smoking Status: Former smoker Second Hand Exposure: No; Do You Dip or Chew Tobacco: No; Hx Alcohol Use: No Hx Substance Use: No Preferred Language: Sudanese Communication Ability: Effective Patient Access Representative Required: No Beliefs That Will Affect Care: None Current Living Situation: Spouse Other Information That Helps Us Care for You: No Feels Safe at Home: Yes Assistive Devices: Brace/Splint/Immobilizer, Denture - Upper, Denture - Lower, Glasses and Hearing Aid - Bilateral Assistive Devices Comment: Sling Review of Systems All systems reviewed & are unremarkable except as noted in HPI & below. Physical Exam General: Alert and oriented. In no acute distress. Vital signs stable. He is resting comfortably in his hospital bed today. He is wearing his sling, however his right arm is not elevated. Cardiovascular Vascularity grossly intact. Musculoskeletal Right shoulder: I did remove the dressing today. Wound check satisfactory. No erythema, edema, drainage or dehiscence. [place] are intact. They will remain intact until 2-week postop check. Right hand: There does seem to be some edema in the fingers, however he has full range of motion of the right hand and wrist. Wound check also satisfactory. I did remove the remaining Xeroform. Sutures remain in place. No erythema, drainage or dehiscence of the wound. Sutures will also remain in place until 2-week postop check. Sensation intact right upper extremity. Distal pulses palpated. Capillary fill less than 3 seconds. Psychiatric A+Ox3, euthymic affect Results & Data Results & Data Laboratory Results Laboratory Results - last 24 hr 01/23/24 01/23/24 01/23/24 10:50 11:37 17:42 WBC 12.62 H RBC 4.06 L Hgb 12.7 L Hct 37.1 L MCV 91.4 MCH 31.3 MCHC 34.2 RDW Std Deviation 45.6 RDW Coeff of Tegan 13.4 Plt Count 242 MPV 9.8 Immature Gran % (Auto) 0.4 Neut % (Auto) 71.2 Lymph % (Auto) 11.5 [place] % (Auto) 15.9 Eos % (Auto) 0.7 Baso % (Auto) 0.3 Neut # (Auto) 8.98 H Lymph # (Auto) 1.45 [place] # (Auto) 2.01 H Eos # (Auto) 0.09 Baso # (Auto) 0.04 Immature Gran # (Auto) 0.05 Sodium 133 L Potassium 3.7 Chloride 98 Carbon Dioxide 27 Anion Gap 8 BUN 22 Creatinine 1.02 Est Cr Clr Drug Dosing Not Reportable Est GFR ( Amer) 80.1 Est GFR (Non-Af Amer) 69.1 BUN/Creatinine Ratio 21.6 H Glucose 179 H POC Glucose Lactate 0.7 Calcium 8.5 L Phosphorus Magnesium 2.0 Total Bilirubin 1.1 H Direct Bilirubin 0.3 H AST 19 ALT 12 Alkaline Phosphatase 66 Total Creatine Kinase 329 H Troponin I High Sens 10.3 Total Protein 7.0 Albumin 3.6 Globulin Albumin/Globulin Ratio Procalcitonin 0.07 Urine Color Urine Appearance Urine pH Ur Specific [place] Urine Protein Urine Glucose (UA) Urine Ketones Urine Blood Urine Nitrite Urine Bilirubin Urine Urobilinogen Ur Leukocyte Esterase Urine WBC (Auto) Urine RBC (Auto) U Hyaline Cast (Auto) U Epithel Cells (Auto) Urine Bacteria (Auto) Adenovirus (PCR) Not Detected B. pertussis DNA (PCR) Not Detected B.parapertussis DNA PCR Not Detected C. pneumoniae DNA (PCR) Not Detected Coronavirus OC43 (PCR) Not Detected Coronavirus HKU1 (PCR) Not Detected Coronavirus 229E (PCR) Not Detected SARS-CoV-2 (PCR) Not Detected Coronavirus NL63 (PCR) Not Detected Human Metapneumovir PCR Not Detected Influenza Type A (PCR) Not Detected Influenza Type B (PCR) Not Detected M. pneumoniae (PCR) Not Detected Parainfluenza 1 (PCR) Not Detected Parainfluenza 2 (PCR) Not Detected Parainfluenza 3 (PCR) Not Detected Parainfluenza 4 (PCR) Not Detected RSV (PCR) Not Detected Entero/Rhino (PCR) Not Detected 01/23/24 01/23/24 01/24/24 21:01 Unknown 06:19 WBC 9.42 RBC 3.70 L Hgb 11.5 L Hct 34.4 L MCV 93.0 MCH 31.1 MCHC 33.4 RDW Std Deviation 46.1 RDW Coeff of Tegan 13.4 Plt Count 212 MPV 9.8 Immature Gran % (Auto) Neut % (Auto) Lymph % (Auto) [place] % (Auto) Eos % (Auto) Baso % (Auto) Neut # (Auto) Lymph # (Auto) [place] # (Auto) Eos # (Auto) Baso # (Auto) Immature Gran # (Auto) Sodium 136 Potassium 3.7 Chloride 101 Carbon Dioxide 29 Anion Gap 6 BUN 18 Creatinine 0.82 Est Cr Clr Drug Dosing 89.2 Est GFR ( Amer) 96.8 Est GFR (Non-Af Amer) 83.5 BUN/Creatinine Ratio 22.0 H Glucose 129 H POC Glucose 161 H Lactate Calcium 8.0 L Phosphorus 3.4 Magnesium 2.0 Total Bilirubin 0.9 Direct Bilirubin AST 15 ALT 11 Alkaline Phosphatase 57 Total Creatine Kinase 144 Troponin I High Sens Total Protein 6.0 Albumin 3.1 L Globulin 2.9 Albumin/Globulin Ratio 1.1 Procalcitonin Urine Color Dark Yellow Urine Appearance Clear Urine pH 6.0 Ur Specific [place] > 1.045 H Urine Protein 1+ H Urine Glucose (UA) Negative Urine Ketones Trace H Urine Blood Negative Urine Nitrite Negative Urine Bilirubin 1+ H Urine Urobilinogen Negative Ur Leukocyte Esterase Negative Urine WBC (Auto) 0-5 Urine RBC (Auto) 0-2 U Hyaline Cast (Auto) 0-2 U Epithel Cells (Auto) 0-2 Urine Bacteria (Auto) None Seen Adenovirus (PCR) B. pertussis DNA (PCR) B.parapertussis DNA PCR C. pneumoniae DNA (PCR) Coronavirus OC43 (PCR) Coronavirus HKU1 (PCR) Coronavirus 229E (PCR) SARS-CoV-2 (PCR) Coronavirus NL63 (PCR) Human Metapneumovir PCR Influenza Type A (PCR) Influenza Type B (PCR) M. pneumoniae (PCR) Parainfluenza 1 (PCR) Parainfluenza 2 (PCR) Parainfluenza 3 (PCR) Parainfluenza 4 (PCR) RSV (PCR) Entero/Rhino (PCR) 01/24/24 07:59 WBC RBC Hgb Hct MCV MCH MCHC RDW Std Deviation RDW Coeff of Tegan Plt Count MPV Immature Gran % (Auto) Neut % (Auto) Lymph % (Auto) [place] % (Auto) Eos % (Auto) Baso % (Auto) Neut # (Auto) Lymph # (Auto) [place] # (Auto) Eos # (Auto) Baso # (Auto) Immature Gran # (Auto) Sodium Potassium Chloride Carbon Dioxide Anion Gap BUN Creatinine Est Cr Clr Drug Dosing Est GFR ( Amer) Est GFR (Non-Af Amer) BUN/Creatinine Ratio Glucose POC Glucose 121 H Lactate Calcium Phosphorus Magnesium Total Bilirubin Direct Bilirubin AST ALT Alkaline Phosphatase Total Creatine Kinase Troponin I High Sens Total Protein Albumin Globulin Albumin/Globulin Ratio Procalcitonin Urine Color Urine Appearance Urine pH Ur Specific [place] Urine Protein Urine Glucose (UA) Urine Ketones Urine Blood Urine Nitrite Urine Bilirubin Urine Urobilinogen Ur Leukocyte Esterase Urine WBC (Auto) Urine RBC (Auto) U Hyaline Cast (Auto) U Epithel Cells (Auto) Urine Bacteria (Auto) Adenovirus (PCR) B. pertussis DNA (PCR) B.parapertussis DNA PCR C. pneumoniae DNA (PCR) Coronavirus OC43 (PCR) Coronavirus HKU1 (PCR) Coronavirus 229E (PCR) SARS-CoV-2 (PCR) Coronavirus NL63 (PCR) Human Metapneumovir PCR Influenza Type A (PCR) Influenza Type B (PCR) M. pneumoniae (PCR) Parainfluenza 1 (PCR) Parainfluenza 2 (PCR) Parainfluenza 3 (PCR) Parainfluenza 4 (PCR) RSV (PCR) Entero/Rhino (PCR) Diagnostic Findings . PG Care Time/CCT Total # of Minutes Spent Total Time Spent with Patient: Total time spent is greater than 50% in coordination of care (as documented) at patient's floor/unit and/or counseling patient: Coding Level of Care Code 44301 IN/OBS CONSULT LVL 3,45M Diagnoses Status post replacement of right shoulder joint Z96.611 S/P carpal tunnel release Z98.890 Acute pain of right shoulder M25.511 Chronicity: acute (3) Right shoulder pain Chronicity: acute Qualified Code(s): M25.511 - Pain in right shoulder
--- NOTE | 2024-01-24 09:25 | Pain Management Consultation ---
Date of Consultation January 24, 2024 Assessment & Plan (1) Status post replacement of right shoulder joint: (2) Intractable pain: Plan Patient did have his right shoulder replaced on 01/19/2024 and is chronically on tramadol 3 times daily x 18 years. Since admission he was ordered Oxycodone 10 mg every 6 hours which he states that it is adequately controlling his pain. He denies any side effects to the medication. IV Dilaudid is ordered if needed for breakthrough pain and has used it once last night. Recommend continuation of Oxycodone 5-10 mg x 6 hours post operatively for 2-4 weeks then he can resume his chronic medication regimen of Tramadol. Patient is in agreement with this plan. History of Present Illness Attending Physician: Abby Vega MD History of Present Illness This is an 78-year-old male that has been referred for postoperative pain. He did have a right shoulder replacement on 01/19/[address] Hayden and has been having significant postoperative pain. He is chronically on tramadol 100 mg 3 times daily. Postoperatively he was sent home with oxycodone 5 mg every 4 hours if needed for pain. He describes a sharp stabbing pain along the right shoulder that is increased with movement. During admission he has been given oxycodone 10 mg every 6 hours which is providing moderate pain relief and he is pleased. Pain is rated 4/10 currently. He denies any side effects to the medication. Does have IV Dilaudid ordered if needed for breakthrough pain. Case discussed with Dr. Gabriella Shin Allergies Allergy/AdvReac Type Severity Reaction Status Date / Time tamsulosin Allergy Intermediate "PASSED Verified 01/19/24 07:38 OUT" Home Medications Medication Instructions Recorded Confirmed Type aspirin 81 mg tablet,delayed 81 mg PO QAM 05/28/19 01/23/24 History release (Aspir-) naproxen sodium 220 mg tablet 440 mg PO BID PRN Pain 05/28/19 01/23/24 History (Aleve) pantoprazole 40 mg tablet,delayed 40 mg PO BID 05/28/19 01/23/24 History release naloxone 4 mg/actuation nasal 1 sprays intranasal Q2M PRN opioid 05/31/19 01/23/24 Rx spray (Narcan) overdose #2 ea amlodipine 10 mg tablet 10 mg PO QAM 11/10/23 01/23/24 History uuhwpyb-zembgluirpznk-mctmplwh 250 1 tab PO Q6H PRN Migraine Headache 11/10/23 01/23/24 History mg-250 mg-65 mg tablet (Excedrin Extra Strength) atorvastatin 40 mg tablet 40 mg PO QAM 11/10/23 01/23/24 History fluorouracil 5 % topical cream 1 applic topical DIRECTED PRN 11/10/23 01/23/24 History Rash loratadine 10 mg tablet (Claritin) 10 mg PO DAILY 11/10/23 01/23/24 History nitroglycerin 0.3 mg sublingual 0.3 mg sublingual Q5M PRN Chest 11/10/23 01/23/24 History tablet Pain tramadol 50 mg tablet 100 mg PO Q6H PRN Severe Pain 11/10/23 01/23/24 History (Scale Score 7-10) cefadroxil 500 mg capsule 500 mg PO BID 10 days #20 caps 01/20/24 01/23/24 Rx ondansetron 4 mg disintegrating 4 mg PO Q6H PRN nausea and 01/20/24 01/23/24 Rx tablet vomiting #10 tabs oxycodone 5 mg tablet 5 - 10 mg (1 - 2 x 5 mg) PO Q6H 01/23/24 01/23/24 Rx PRN post operative pain #18 tabs Patient History Medical History Type II diabetes mellitus History of bladder cancer 1992- s/p tumor removal - no chemo or XRT- no current issues CAD (coronary artery disease) PCI with BRENDA x 3 to LAD 03/04/2009 (occluded LAD) BRENDA to LCx 03/06/2009 (high grade distal LCx stenosis) Hx of migraine headaches History of COVID-19 2019 - no residual issues Hypertension Hx of sepsis 2018 > unknown cause History of kidney stones Osteoarthritis Degenerative disc disease Chronic back pain Diverticular disease GERD (gastroesophageal reflux disease) well controlled and stable Hyperlipidemia Surgical History History of prostatectomy 2019 - patient unsure why prostate was removed History of repair of rotator cuff bilat H/O arthroscopic knee surgery right Hx of Achilles tendon repair left History of biopsy of bladder cancer 1992 > resolved History of cystoscopy History of colonoscopy History of esophagogastroduodenoscopy (EGD) History of cataract surgery bilateral History of adenoidectomy History of tonsillectomy History of heart artery stent x4 stents (February 2009)--unsure of type History of cardiac cath February 2009 @ [facility] History of ankle surgery right trauma to ankle/reconstruction Family History Father Family history of diabetes mellitus Mother Family history of diabetes mellitus Sister Family history of diabetes mellitus Social History Smoking Status: Former smoker Second Hand Exposure: No; Do You Dip or Chew Tobacco: No; Hx Alcohol Use: No Hx Substance Use: No Preferred Language: Barbadian Communication Ability: Effective Meeting Manager Required: No Beliefs That Will Affect Care: None Current Living Situation: Spouse Other Information That Helps Us Care for You: No Feels Safe at Home: Yes Assistive Devices: Brace/Splint/Immobilizer, Denture - Upper, Denture - Lower, Glasses and Hearing Aid - Bilateral Assistive Devices Comment: Sling Physical Exam Physical Exam: GENERAL: This is an 78 year old male in no acute distress. HEAD/FACE: Normocephalic and atraumatic. EYES: No drainage or conjunctival injection. ENT: Nose without bleeding or discharge. Oral mucosa moist. NECK: Full ROM without apparent pain. No swelling or masses noted. RESPIRATORY: Patient with unlabored breathing. No signs of respiratory distress. CHEST/AXILLA: Chest movement symmetrical. No deformities noted. ABDOMEN/GI: No distension BACK: Moves without difficulty SKIN: + Right anterior shoulder incision appears well. MS/EXTREMITY: Right shoulder immobilized. NEURO: Alert and appears oriented. Speech is fluent. Cranial Nerves are grossly intact. PSYCH: Alert, pleasant, affect is calm
[2024-01-24 11:12] VITALS: BP 137/76; TEMP 98.4
[2024-01-24] MEDS ORDERED: LEVALBUTEROL 0.31MG/3 ML VIAL NEB PRN (12:17)
--- NOTE | 2024-01-24 12:59 | Discharge Summary ---
Date of Service January 24, 2024 Admission HPI Per Admitting Provider Ti Mathews is an 78y/o M with PMHx of metabolic syndrome, dyslipidemia, DM type II with diabetic polyneuropathy, chronic rhinitis, CAD s/p PCI to LAD [2008], HTN, history of RBBB, GERD, Mckeon's esophagus, BPH w/ LUTS, history of migraines, peripheral neuropathy, history of tobacco use and other problems listed below who presented to the ED secondary to worsening right shoulder pain. History obtained from patient, at bedside and associated chart review. Patient underwent right reverse shoulder arthroplasty and right carpal tunnel open release with Dr. Hayden last (01/18). Patient states he's been in excruciating pain ever since then. He has been taking oral oxycodone 5-10mg 3- 4x/day and oral tramadol 100mg 3-4x/day without much to any relief. He has been nauseous as well, but denies any episodes of vomiting. He has been taking oral Zofran at home, which helps to alleviate the nausea. His mentions that he is not eating or drinking well, maybe takes a few bites of food and sips here an d there. His also notes that he has been sweating intermittently, but she has been taking his temperature often and has not noted any fevers. He denies any SOB, chest pain or abdominal pain. He mentions that he has not had a bowel movement since last Tuesday (01/16). He tried taking some laxatives the other day, but his reports that they did not work. Patient is currently taking prophylactic cefadroxil 500mg BID x 10 days, he is currently on day 4 of antibiotic therapy. The antibiotic was prescribed by Dr. Hayden on 01/19. Patient became mildly hypoxic in the ED following administration of IV Dilaudid. His oxygen saturation went down to 88% at one point, and he was subsequently placed on 2L of oxygen via NC. Per ED provider, Dr. Chin, the patient's oxygen saturation dropped even further with ambulation. Patient is 94% SpO2 on 2L via NC at time of admission. Dr. Chin reached out to make Dr. Hayden aware that the patient is being admitted - Dr. Hayden is agreeable with doing so and the plan moving forward. Admission Exam Per Admitting Provider General: Patient is sitting up in bed, appears very uncomfortable, slightly diaphoretic, A+Ox3. HEENT: Normocephalic, atraumatic. Conjunctivae normal, anicteric sclerae. External ear and nose normal, oropharynx normal. Respiratory: Normal respiratory effort, mild crackles in RLL, otherwise clear to auscultation. No accessory muscle use. Cardiovascular: Regular rate, rhythm, no murmur, normal peripheral pulses, no BLE edema. Vessels: No JVD. Abdomen/GI: Normal bowel sounds, soft, nontender, no hepatosplenomegaly. Extremities/Musculoskeletal: R arm in sling, large dressing in place over R shoulder - no drainage or seeping, extreme pain w/ RUE movement. Neurologic: PERRL, EOMI, accommodation nl, no face palsy, no dysarthria, CN's II-XI not formally tested but appear grossly intact bilaterally. Skin: No rashes, normal color, warm/dry. Cleansing agent outlining R shoulder surgical site. Principal Diagnosis intractable pain Discharge Exam Neuro: AAOx4, PERRLA, no aphagia, memory changes, CNII-XII grossly intact HEENT: head normocephalic, moist mucus membranes CV: S1/S2, (-) M/G/R, (-) edema, cap refill < 3 seconds Resp: Lungs CTA in all zhou. On RA GI: Abdomen S/NT/ND, Ax4 bowel sounds, (-) CVA tenderness Musculoskeletal: 5/5 B/L UE strength, 2/5 RUE strength LUE strength 5/5. No gait disturbance Anterior jose alfredo intact post op. R arm sling present. Skin: (-) rashes , (-) erythema. Psych: euthymic mood Discharge Data Allergies Allergy/AdvReac Type Severity Reaction Status Date / Time tamsulosin Allergy Intermediate "PASSED Verified 01/19/24 07:38 OUT" Consultations 01/23/24 16:09 ED Decision to Admit Stat 01/23/24 18:55 Consult Orthopedic Surgery Routine 01/23/24 21:54 Consult Pain Management Routine Ordered Studies 01/23/24 12:32 CT angio chest PE protocol Stat Hospital Course (1) Right shoulder pain: (2) Hypoxia: (3) Elevated creatine kinase: (4) Hyponatremia: (5) Anemia: Plan Patient underwent right reverse shoulder arthroplasty and right carpal tunnel open release with Dr. Hayden last (01/18). Patient states he's been in excruciating pain ever since then. He has been taking oral oxycodone 5-10mg 3- 4x/day and oral tramadol 100mg 3-4x/day without much to any relief. He has been nauseous as well, but denies any episodes of vomiting. He has been taking oral Zofran at home, which helps to alleviate the nausea. His mentions that he is not eating or drinking well, maybe takes a few bites of food and sips here and there. His also notes that he has been sweating intermittently, but she has been taking his temperature often and has not noted any fevers. He denies any SOB, chest pain or abdominal pain. He mentions that he has not had a bowel movement since last Tuesday (01/16). He tried taking some laxatives the other day, but his reports that they did not work. Patient is currently taking prophylactic cefadroxil 500mg BID x 10 days, he is currently on day 4 of antibiotic therapy. The antibiotic was prescribed by Dr. Hayden on 01/19. Diagnostic imaging that was performed during this hospital stay includes: 01/23/24: 1. No acute abnormality and in particular no evidence of pulmonary embolus. 2. Postsurgical changes in the right upper extremity. 3. Atelectasis and emphysema remain 4. 5 mm nodule in the left apex. According to Fleischner criteria, no follow-up is required in low risk patients, in high-risk patients, a 12 month follow-up CT can be optionally performed 01/22 Shoulder x-ray: IMPRESSION: Status post reverse total right shoulder arthroplasty. No periprosthetic fracture. No unexpected radiopaque foreign bodies. Orthopedics made the following recommendations after seeing you in the hospital: * Stop taking your tramadol at home and just take oxycodone for which a prescription was sent to your outpatient pharmacy. * Recommendation to keep your right arm in your sling and it was adjusted ap propriately. * Recommended to elevate your right hand as best that you can specifically by using the sling to hold your upper chest with her hand * Begin home physical therapy for your right shoulder. Reiteration that physical therapy is a slow/gradual process after this type of surgery and it is not necessary for you to have any physical therapy in the hospital. They will call you to start physical therapy. * Your wound can remain open to air without any dressing coverage at this time -As outlined above you have a 2-week follow-up postoperative appointment on 02/01 at 10:30 AM Pain Management made the following recommendations after seeing you in the hospital: * Continue taking Oxycodone 10 mg by mouth every 6 hours as needed for the next two-four weeks * A prescription has been sent to your home pharmacy for FIVE days worth of this medication. Your PCP can prescribe additional pain medication at your follow up appointment on Friday 01/26. * Please continue taking Miralax while using narcotics to avoid bowel obstructions. Overall, his CK level improved with fluid resuscitation and his hyponatremia resolved at time of DC as well; increasing from 133-136. Patient discharged home with scripts and medication orders placed. Total Time Total Time Spent Total Time Spent (In Minutes): I spent a total of 62 minutes coordinating, documenting, and providing care for this patient excluding time spent in the performance of separately billed services. All of the aforementioned completed while collaborating with the assigned attending physician for a full treatment plan. Please see their addendum for further details. Discharge Plan Discharge Items Patient Disposition: Home - Self-Care Reason For Visit: R SHOULDER PAIN, HYPOXIA Discharge Diagnosis: R shoulder pain Condition on Discharge: Good Activity: As commented below Activity Comment: Continue to wear your sling on your right arm. You will begin PT at home. Lifting: None Lifting Comment: no lifting with r arm Bathing: No limitations Weightbearing: Full weightbearing Non-emergency contact: Primary Care Provider and Surgeon Call non-emergency contact if: you have any medication questions, your symptoms worsen, your pain is not controlled, your pain is worsening, your pain is unusual for you and your rectal temperature is above 100.4 Follow-up/Referrals: Anshu Hayden MD [Surgeon] - 02/02/24 10:30 am Darian Mcnulty PA-C [Primary Care Provider] - 01/27/24 10:00 am (Date & Time 01/27/2024 10:00 AM Provider Randa Lehman MD [facility] ) Diet: Regular and Heart Healthy Diet Texture: Easy to Chew Addtl Attending Provider Instructions: You were admitted to the hospital on 01/22 with complaints of right shoulder pain. You underwent a right shoulder replacement on 01/19/2024 under the care of Dr. Hayden and have been complaining of significant postoperative pain. He reported your pain as a sharp and stabbing pain along the right shoulder that worsens with movement. In the emergency room you were given Dilaudid 0.5 mg once, ketorolac once and oxycodone 5 to 10 mg twice over the last 24 hours. He reported that this provided moderate pain relief and currently rating her pain a 3 out of 10 currently. Upon arrival you were noted to have some hypoxia with saturations at 90%. In the emergency room a chest CTA was performed due to your shortness of breath and you were noted to have a 5 mm nodule in the left apex and it is recommended that you proceed with follow-up imaging in 1 year or sooner if your symptoms persist. Coordinate with your PCP office to set up the test. You reportedly have been taking your tramadol for the last 18 years and while you were here you were evaluated by both orthopedics and pain management. Pain management indicated that you should continue with oxycodone at home 10 mg every 6 hours as needed. Hold tramadol until you are taking oxycodone. Continue taking your prescribed cefadroxil for another FIVE days completing on Sunday 01/28. Please attend the following follow up appointments: 1. PT/OT will reach out to determine when they will begin working with you 2. PCP follow up: Darian Mcnulty PA-C Friday 01/26 @ 1000. They can determine if an additional pain medication refill is necessary. 3. Orthopedics follow up:Dr. Hayden 02/01 @ 1030 We thank you kindly for allowing the [facility] Hospitalist team to participate in your care. We wish you well in your recovery. Addlily Crumb Packer Provider Instructions: Orthopedics made the following recommendations after seeing you in the hospital: * Stop taking your tramadol at home and just take oxycodone for which a prescription was sent to your outpatient pharmacy. * Recommendation to keep your right arm in your sling and it was adjusted appropriately. * Recommended to elevate your right hand as best that you can specifically by using the sling to hold your upper chest with her hand * Begin home physical therapy for your right shoulder. Reiteration that physical therapy is a slow/gradual process after this type of surgery and it is not necessary for you to have any physical therapy in the hospital. They will call you to start physical therapy. * Your wound can remain open to air without any dressing coverage at this time -As outlined above you have a 2-week follow-up postoperative appointment on 02/01 at 10:30 AM Pain Management made the following recommendations after seeing you in the hospital: * Continue taking Oxycodone 10 mg by mouth every 6 hours as needed for the next two-four weeks * A prescription has been sent to your home pharmacy for FIVE days worth of this medication. Your PCP can prescribe additional pain medication at your follow up appointment on Friday 01/26. * Please continue taking Miralax while using narcotics to avoid bowel obstructions. Pending Studies at Discharge: No Stand-Alone Forms: My [facility] [employer], Smoking Cessation Medications and DC Order Prescriptions: New Advanced Probiotic 625 mg (10 billion cell) Capsule 1 cap PO DAILY Qty: 10 0RF polyethylene glycol 3350 [Miralax] 17 gram Powder In Packet 17 g PO DAILY Qty: 14 0RF oxycodone 10 mg tablet 10 mg PO Q6H PRN (Reason: pain (scale score 7-10)) Qty: 20 0RF Continued atorvastatin 40 mg tablet 40 mg PO QAM nitroglycerin 0.3 mg tablet, sublingual 0.3 mg sublingual Q5M PRN (Reason: Chest Pain) fluorouracil 5 % cream 1 applic topical DIRECTED PRN (Reason: Rash) amlodipine 10 mg tablet 10 mg PO QAM Excedrin Extra Strength 250-250-65 mg tablet 1 tab PO Q6H PRN (Reason: Migraine Headache) loratadine [Claritin] 10 mg tablet 10 mg PO DAILY aspirin [Aspir-81] 81 mg Tablet,Delayed Release (Dr/Ec) 81 mg PO QAM pantoprazole 40 mg Tablet,Delayed Release (Dr/Ec) 40 mg PO BID naproxen sodium [Aleve] 220 mg Tablet 440 mg PO BID PRN (Reason: Pain) naloxone [Narcan] 4 mg/actuation spray,non-aerosol 1 sprays INTNAS Q2M PRN (Reason: opioid overdose) Qty: 2 0RF Patient Comments: no longer taking 12/23/23 ondansetron 4 mg tablet,disintegrating 4 mg PO Q6H PRN (Reason: nausea and vomiting) Qty: 10 0RF cefadroxil 500 mg capsule 500 mg PO BID 10 Days Qty: 20 0RF Discontinued oxycodone 5 mg tablet 5 - 10 mg PO Q6H MDD 6 tablets PRN (Reason: post operative pain) Qty: 18 0RF Rx Instructions: Take 5 - 10 mg (1 - 2 tablets) orally every 6 hours as needed for post- operative pain. Max Daily Dose: 6 tablets tramadol 50 mg tablet 100 mg PO Q6H PRN (Reason: Severe Pain (Scale Score 7-10)) Patient Comments: takes Rx Instructions: Take 2 Tablets by mouth every 6 hours as needed for severe pain. No more than 6 tablets per day. Discharge Orders: Discharge Order (Routine); Ordered 01/24/24 Ordered By: Gogo Chauhan Admission Data Admit Date/Time: 01/23/24 16:49 Attending Provider: Abby Vega Admit Provider: Rafael Franco Primary Care Provider: Darian Mcnulty Other Providers: Odell Mendes; Rafael Franco; Gabriella Shin Supervising Physician Co-Signing Physician Notes Patient was seen and examined at bedside as a follow-up of uncontrolled right shoulder pain, status post reverse total right shoulder arthroplasty 01/18. Patient was evaluated by pain management and orthopedic. Patient reports pain control while in here. Patient advised to not take tramadol while being on oxycodone at home. Patient would like to go home and is hemodynamically stable. Patient denies any signs and symptoms of infection. Patient will be discharged on oxycodone to be closely following up with PCP for further pain management evaluation/prescription. Hypoxia noted in the ED was likely secondary to excessive pain medication use, which has improved. Patient denies febrile illness or cough or sputum production. Patient has been advised to continue with incentive spirometer upon discharge. On examination: Patient on room air, NAD, right UE in sling. rest of the exam as above. I have seen and examined the patient and have discussed the case with the provider above. I agree with the assessment and plan as stated.
[2024-01-24 15:53] VITALS: PULSE 89
== END 2024-01-24 16:55 | disposition home or self-care (01) | DRG 948 ==
LOC: ED 10:08 → 2N 16:49 → SUATTDRO 16:49 → 2N 19:30